=== PATIENT | male | born 1945 | race Caucasian/White ===

== ENCOUNTER 2023-08-03 12:10 | Inpatient (IN) | payer MEDICARE, OTHER, SELFPAY ==
[2023-08-03] VITALS (12 sets, daily range): BP systolic 137–172; BP diastolic 67–83; BMI 24.5; BMI 23.2; BMI 29.1
[2023-08-03 10:00] LABS: % Basophils 1.1 % (0-2); % Eosinophils 1.3 % (0-6); % Immature Granulocytes 0.6 % (0-0.5); % Lymphocytes 60.9 % (20.5-51.1); % Neutrophils 27.1 % (42.2-75.2); Absolute Basophils 0.1 10^3/uL (0-0.2); Absolute Eosinophils 0.1 10^3/uL (0-0.7); Absolute Lymphocytes 2.9 10^3/uL (1.2-3.4); Absolute Monocytes 0.4 10^3/uL (0.1-0.6); Absolute Neutrophils 1.3 10^3/uL (1.4-6.5); Hematocrit 29.8 % (39.0-52.0); Hemoglobin 10.8 g/dL (13.0-18.0); Mean Corp Hgb Conc. 36.2 g/dL (33.0-37.0); Mean Corpuscular Hgb 32.9 pg (27.0-31.0); Mean Corpuscular Volume 90.9 fL (80.0-94.0); Mean Platelet Volume 9.9 fL (7.4-10.4); Nucleated Red Blood Cells % 0 % (-); Platelet Count 179 10^3/uL (130-400); Red Blood Cell Count 3.28 10^6/uL (4.70-6.10); Red Cell Dist. Width 13.8 % (11.5-14.5); White Blood Cell Count 4.7 10^3/uL (4.8-10.8)
[2023-08-03 10:31] LABS: ALT (SGPT) 15 U/L (0-50); AST (SGOT) 21 U/L (17-59); Albumin 3.8 g/dl (3.5-5.0); Alkaline Phosphatase 103 U/L (38-126); Blood Urea Nitrogen 17 mg/dl (9-20); Calcium 8.3 mg/dl (8.4-10.2); Carbon Dioxide 21 mmol/L (22-30); Chloride 112 mmol/L (98-107); Estimated Creatinine Clearance 84 ml/min; Glucose 167 mg/dl (70-99); Potassium 2.2 mmol/L (3.5-5.1); Sodium 141 mmol/L (135-145); Total Bilirubin 0.9 mg/dl (0.2-1.3); Total Protein 5.9 g/dl (6.3-8.2); eGFR > 60.00
[2023-08-03] MEDS: KCL 270 MEQ IV (10:57)
--- NOTE | 2023-08-03 11:10 | ED.GENMED ---
History of Present Illness
General
Chief Complaint: Fainting/Passed Out
Source: patient and spouse
Time Seen by Provider: 08/03/23 09:27
Travel History
Have you had any contact with someone who has COVID-19?: No
Do you have any symptoms of coronavirus? Fever > 100 degrees, chills, cough, shortness of breath, sore throat, loss of taste or smell, muscle aches, or headache?: No
History of Present Illness
History of Present Illness:
This is 78-year-old male with a history of prostate cancer and stroke with short-term memory loss who presented or had a syncopal episode while in the shower. He woke up feeling a little tired but was in the shower and his heard him climbing.
She walked in and was able to sit him down on the chair and he probably passed out. She states that did not last long but brought in for evaluation. He is on Lytiga. Patient currently denies chest pain. He was nausea reports that is improved.
No headache. No abdominal pain. No fevers.
Past History
Past History
ED Past Medical History: Cancer (Prostate cancer), CVA, HTN and Other (Post radiation urethral stricture short-term memory loss)
ED Past Surgical History: Urological
Social History
Tobacco: Non-smoker
Alcohol: None
Personal:
Living: with family
Employment: Retired
Family History
Family History: Other (Noncontributory)
Phy Exam
Physical Exam
Physical Exam:
CONSTITUTIONAL Patient alert and oriented to person, place and time. Well-appearing. Vital signs reviewed.
HEAD atraumatic, normocephalic.
EYES eyelids normal to inspection, Pupils equally round and reactive to light, Extraocular muscles intact, Conjunctiva normal, Sclera normal.
NECK normal range of motion, Trachea midline, no jugular venous distention.
RESPIRATORY CHEST No respiratory distress noted, Chest expansion equal, Bilateral breath sounds clear.
CARDIOVASCULAR regular and bradycardic with 3 out of 6 systolic ejection murmur.
ABDOMEN abdomen nontender, Bowel sounds normal. No distention.
BACK normal inspection, no obvious deformities
UPPER EXTREMITY range of motion normal, Motor strength normal, no cyanosis, no edema.
LOWER EXTREMITY range of motion normal, Motor strength normal, no cyanosis, no edema.
NEURO Speech normal, No focal motor deficits, Cranial Nerves intact to screening exam.
SKIN skin warm, dry, and normal in color.
PSYCHIATRIC patient oriented to person place and time, Normal affect.
Course
Orders/Labs/Results
Orders:
Orders
08/03/23 09:33
EKG [Electrocardiogram (*1)] Urgent
Reason for Study: Syncope
EKG- Treatment ONCE
08/03/23 09:50
Complete Blood Count/With Diff Urgent
Comprehensive Metabolic Panel Urgent
Magnesium Urgent
08/03/23 10:05
CT Head W/o Iv Contrast Urgent
Comment:
Reason For Exam: vomiting, hx of CVA, change in ms
08/03/23 10:38
Potassium Chloride [KCl] 40 meq Dextrose 5%/Water 250 ml [D5w] 250 ml IV NOW
Abnormal Lab Results
08/03/23
09:50
WBC 4.7 L 10^3/uL
(4.8-10.8)
RBC 3.28 L 10^6/uL
(4.70-6.10)
Hgb 10.8 L g/dL
(13.0-18.0)
Hct 29.8 L %
(39.0-52.0)
MCH 32.9 H pg
(27.0-31.0)
Absolute Neuts (auto) 1.3 L 10^3/uL
(1.4-6.5)
Immature Gran % 0.6 H %
(0-0.5)
Neutrophils % 27.1 L %
(42.2-75.2)
Lymphocytes % 60.9 H %
(20.5-51.1)
Potassium 2.2 L* mmol/L
(3.5-5.1)
Chloride 112 H mmol/L
(98-107)
Carbon Dioxide 21 L mmol/L
(22-30)
Glucose 167 H mg/dl
(70-99)
Calcium 8.3 L mg/dl
(8.4-10.2)
Total Protein 5.9 L g/dl
(6.3-8.2)
08/03/23 09:50
08/03/23 09:50
Vital Signs
Initial and Last Documented VS:
Initial Vital Signs
Pulse Resp BP Pulse Ox
44 16 162/77 97
08/03/23 09:31 08/03/23 09:31 08/03/23 09:31 08/03/23 09:31
Last Documented Vital Signs
Pulse Resp BP Pulse Ox
45 14 137/67 97
08/03/23 10:00 08/03/23 10:00 08/03/23 10:00 08/03/23 09:42
MDM/Problems Addressed
MDM/Problems Addressed:
Syncope, sinus bradycardia, severe acute hypokalemia, nausea, likely a side effect from Lytiga
*Radiology
Radiology exam reviewed: preliminary read by ED provider (No obvious intracranial hemorrhage)
*Pulse Oximetry
Patient hypoxic: no
*EKG
Interpreted by ED Provider?: Yes
Interpretation: abnormal
Rate: bradycardiac
Rhythm: sinus and PVC's
Ischemia: non-specific ST changes
*Turbine Measurements Engineer Interpretation
Rate: bradycardiac
Interpretation: abnormal
Rhythm: sinus
*Critical Care Note
Total Time (30-74mins, 75-104mins- exclusive of procedures): 30 minutes
Data Reviewed
Review of Other/Old Records Reveals: Discharge Summary (Reviewed from August 2022)
Source: family
Further Testing Considered But Not Given:
Considered troponin but no signs of ischemia on EKG and no chest pain
Patient Management
Discussion with other providers: Hospitalist and Other (Case discussed with pharmacy who reviewed patient's medications and does state that Lytiga can cause hypokalemia)
Escalation/DeEscalation of care consider admission/obs:
Severe hypokalemia. Case of syncope and bradycardia, IV replacement and admit. May trial oral replacement but currently nauseous
ED Attending Note
-
Portions of this chart may have been created with voice recognition software.� Occasional wrong word or��sound alike� substitutions may have occurred due to the inherent limitations of voice recognition software.
Discharge Plan
Departure
Patient Disposition: Admit
Date of Disposition: 08/03/23
Time of Disposition: 11:10
Admit to: Telemetry
Presentation/result/management discussed w/ accepting MD/DO: Hospitalist
Discharge Problem:
Syncope, Acute hypokalemia, Bradycardia
Prescriptions:
No Action
prednisone 5 mg Tablet
5 mg PO DAILY
amlodipine 5 mg Tablet
7.5 mg PO DAILY
docusate sodium [Colace] 100 mg Capsule
200 mg PO DAILY
abiraterone [Zytiga] 250 mg Tablet
1,000 mg PO HS
ascorbic acid (vitamin C) [Vitamin C] 500 mg Tablet
500 mg PO DAILY
ibuprofen [Advil] 200 mg Tablet
200 mg PO Q6HPRN PRN (Reason: mild pain)
cholecalciferol (vitamin D3) [Vitamin D3] 25 mcg (1,000 unit) Tablet
25 mcg PO DAILY
potassium chloride 20 mEq Tablet Extended Release
20 meq PO BID
[employer] 750 mg-100 mg- 1.65 mg-108 mg Tablet
1 tab PO DAILY
Referrals:
Dany Fitzgerald, [Family Provider] -
Interventions
Interventions:
*Risk Screen - Suicide Last Done: 08/03/23 09:39
*General Assessment Last Done: 08/03/23 09:39
*Neglect/Abuse Screening Last Done: 08/03/23 09:39
*ED COVID-19 Vaccine History Last Done: 08/03/23 09:39
ED- Cardiac Assessment Last Done: 08/03/23 10:32
ED- Neurological Assessment Last Done: 08/03/23 10:32
[2023-08-03 12:00] LABS: Urine Albumin Trace (Neg - Trace); Urine Bilirubin Negative (Negative); Urine Character Clear (Clear); Urine Color Yellow; Urine Glucose 1+ (Negative); Urine Ketone 1+ (Negative); Urine Leukocyte Negative (Negative); Urine Nitrite Negative (Negative); Urine Occult Blood Trace (Negative); Urine Specific Gravity 1.015 (<1.030); Urine Urobilinogen Negative (Neg - 1+)
[2023-08-03 12:16] LABS: Urine Red Blood Cell 0-2 /HPF (0-2); Urine Squamous Cell 0-2 /LPF (Few)
[2023-08-03 12:20] LABS: Urine White Cell 0-2 /HPF (0-5)
--- NOTE | 2023-08-03 13:01 | HPS.HSE ---
Addendum entered and electronically signed by Ze Barbour MD 08/03/23 13:57:
Got call back from primary oncologist
Agreed to increase prednisone 5mg TWICE daily. Agreed to add Aldactone limit mineralocorticoid action.
Supplement K and monitor.
Original Note:
Family Physician
-
Family Physician: Dany Fitzgerald
Chief Complaint
-
syncope
History of Present Illness
Patient is a 78M with history of prostate cancer s/p prostatectomy/radiation on abiraterone, essential hypertension, history of intracranial hemorrhage in oct 03 and some residual memory loss, history of urinary retention and requirement of straight
catheterization, hyperlipidemia was brought to ER by spouse after patient had an brief syncope episode. Patient was in shower when started to having symptoms, with patient memory issues does not able to remember what transpired before syncope.
Spouse was able to sit patient down in chair after that patient passed out briefly. Patient had some nausea without vomiting after that. Patient denies of having any palpitation, chest discomfort, shortness of breath. No previous reported history
of syncope. I have contacted patient's spouse and confirmed all the details.
Patient at baseline able to ambulate without any assistance, minor memory issues are only residual problems after initial intracranial hemorrhage in October 03. Patient follows up with [facility] for treatment of prostate cancer with Dr
Omkar Mcgee
Medical History
Past Medical History
Past Medical History: Reports Other
Additional Past Medical History:
prostate cancer s/p prostatectomy/radiation on abiraterone, essential hypertension, history of intracranial hemorrhage in oct 03 and some residual memory loss, history of urinary retention and requirement of straight catheterization, hyperlipidemia
Past Surgical History: Reports Other
Social History
Tobacco: Non-smoker
Alcohol: Occasional
Drug: None
Personal:
Living: With Family
Family History
Family History: Not pertinent
Allergies / Home Medications
Allergies reflects when Allergies were last updated in [employer].
Home Medications with original date entered in [employer]
Allergy/Medication List:
Allergies
Allergy/AdvReac Type Severity Reaction Status Date / Time
Horse/Equine Containing Allergy Anaphylaxis Verified 10/02/22 01:09
Products - horse
serum
Tetanus Vaccines and Toxoid Allergy Anaphylaxis Verified 10/02/22 01:09
[Tetanus]
Home Medications
abiraterone 250 mg tablet (Zytiga) 1,000 mg PO HS Cancer 09/05/22
amlodipine 5 mg tablet 7.5 mg PO DAILY Blood pressure 09/05/22
docusate sodium 100 mg capsule (Colace) 200 mg PO DAILY Gastrointestinal issue 09/05/22
prednisone 5 mg tablet 5 mg PO DAILY Anti-inflammatory 09/05/22
ascorbic acid (vitamin C) 500 mg tablet (Vitamin C) 500 mg PO DAILY 08/03/23
cholecalciferol (vitamin D3) 25 mcg (1,000 unit) tablet (Vitamin D3) 25 mcg PO DAILY 08/03/23
glucosam 750 mg-chondroi 100 mg-hyalur 1.65 mg-CF borate 108 mg tablet ([employer]) 1 tab PO DAILY 08/03/23
ibuprofen 200 mg tablet (Advil) 200 mg PO Q6HPRN PRN mild pain 08/03/23
potassium chloride 20 mEq tablet,extended release 20 meq PO BID 08/03/23
Review of Systems
-
A 12 point ROS was completed and negative except as noted: Yes
Physical Exam
Vital Signs
Vital Signs
Pulse Resp BP Pulse Ox
48 12 150/72 98
08/03/23 12:15 08/03/23 12:15 08/03/23 12:00 08/03/23 12:15
Physical Exam
General: No Appears in Distress
HEENT: No Oxygen
Respiratory: Clear and Rhonchi; No Wheezes or Rales
Cardiac: S1/S2, Regular Rhythm and Bradycardia
GI: Soft, Non Tender and Non Distended
Musculoskeletal: No Clubbing, No Cyanosis and No Edema
Neuro: Awake, AO x 3 and Nonfocal/grossly intact
Psych: Calm
Laboratory Results
-
08/03/23 09:50
08/03/23 09:50
Laboratory Results
Total Bilirubin 0.9 mg/dl (0.2-1.3) 08/03/23 09:50
AST 21 U/L (17-59) 08/03/23 09:50
ALT 15 U/L (0-50) 08/03/23 09:50
Alkaline Phosphatase 103 U/L (38-126) 08/03/23 09:50
Data Reviewed
-
Lab Data: Labs Reviewed by me, Discussed with Patient and Discussed with Family
Impression/Plan
-
1. Syncope likely from bradycardia
Sinus bradycardia likely from sev hypokalemia
-Patient passed out briefly without any fall, spouse present during the episode
-No reported previous episodes of syncope
-EKG showing patient having sinus bradycardia with heart rate in 40s, likely explaining syncope
-Severe hypokalemia of 2.2 likely causing bradycardia
-Check TSH/free T4 and cortisol level (on prednisone)
-SBP in 150s and unlikely orthostasis, one time check ordered.
-Monitor on telemetry
-Cardio evaluation requested
2. Severe hypokalemia
-K 2.2, mag normal.
-No clear explanatory cause except abiraterone, literature reviewed - treatment is prednisone/potassium sparing diuretic/Potassium supplement
-Patient ordered IV KCl 40 mEq, repeat oral 40 M EQ x 2 ordered
-Repeat K check at 2000 ordered
-Left message for call back from primary oncologist Dr Omkar Mcgee to discuss and inform about this
3. Essential HTN
- see 2. stopping amlodipine and starting on Aldactone
4. Prostate cancer s/p prostatectomy/radiation on abiraterone
history of urinary retention and requirement of straight catheterization
History of cystoscopy and urethral dilation
-Patient denies of any need for straight catheterization now.
-Not on Flomax, continue monitoring
-Bladder scan if any concern of urinary retention.
history of intracranial hemorrhage in oct 03 and some residual memory loss
hyperlipidemia
DVT PPX - lovenox
Full code - confirmed with patient
Total time spent : 85 mins
I personally saw and examined the patient.
I have reviewed all diagnostic interpretations and treatment plans as written.
Time includes patient management by me, time spent at the patients bedside, time to review lab and imaging results, discussing patient care, documentation in the medical record, and time spent with the family or caregiver and discussing care plan
with RN/Consultants.
[2023-08-03 15:09] LABS: TSH Reflex To Free T4 3.92 uIU/ml (0.47-4.68)
[2023-08-03 15:10] LABS: Cortisol, Random 9.9 ug/dl
--- NOTE | 2023-08-03 15:14 | CM ---
Reviewed chart. Met with and Mrs. Spencer to review discharge plans. He states prior to admission he resides with his spouse in a two story home with two steps at home. He states he has an elevator to get to the second floor. He states
prior to admission he was independent with ambulation and adls. He states he does not have any DME in the home. He states he has a prescription plan and uses [facility]. He states he has been in [facility]. at [place] after his CVA. He was
also in [facility] for 4 days and he then went home with [facility] and home therapy. 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 Will need to see his current functional
level to see if he will have any skilled care needs. Medical work-up in progress. The discharge plan is to return home with his spouse when medically stable.
--- NOTE | 2023-08-03 16:07 | CON.CAR ---
Addendum entered and electronically signed by Diana Wu DO 08/03/23 20:54:
Dictation error�presenting heart rates sinus in the 40s likely secondary to electrolyte abnormalities
Addendum entered and electronically signed by Diana Wu, 08/03/23 20:25:
I saw and examined the patient.
The [employer] Supervisor's note was reviewed and I agree with the note.
Comment: Patient seen and examined. Patient is a 78-year-old male with past medical history of prostate cancer on Zytiga followed by [facility], hypertension, LVH, aortic insufficiency, CVA 09/2022 who presents to [facility]
after an episode of syncope.� Patient got up this morning and got into the shower.� Upon getting out of the shower, patient's heard him stumbling and went into the bathroom and help to get him to a chair.� She then states that he passed out for
several seconds.� 911 was called and he was brought to the emergency room.� He denied prodrome, however with his history of stroke has short-term memory loss so is forgetful.� Upon arrival he was noted to have severe hypokalemia of 2.2, and was
bradycardic in the setting of this.� Patient's states hypokalemia has been an ongoing problem for him.� He historically has been unable to take the pill form of potassium, so they had been using the powder 20meq BID until approximately 1 week
ago when they switched to the pills due to significant cost difference between powder and pill.� He tells me today that he has been chewing the pills before swallowing.� He denies nausea vomiting diarrhea as an outpatient, however did have an
episode of vomiting when he arrived to the floor today.
General:�NAD on RA
HEENT:�mmm
Respiratory:�Clear and Non Labored Respirations
Cardiac:�S1/S2, Regular Rhythm 2/6 SM
GI:�Soft, Non Tender, Non Distended and Normal Bowel Sounds
Musculoskeletal:�No edema
Plan:
Syncopal episode in the setting of marked hypokalemia to be related to zytiga therapy in addition to recent change in potassium supplementation 1 week ago
-Presenting heart rates sinus in the 40s likely secondary to alcoholic abnormalities
-Heart rates have improved currently in the 70s on telemetry
-No indication for pacemaker
-Follow on telemetry overnight
-Check echo in a.m.
-Avoid use of AV bala blocking agents
Original Note:
Consultation
Consultation Request
Date/Time Consultation Performed: 08/03/23
Requesting Provider: Dr. Barbour
Performing Provider: Agueda Mooney PA-C for Dr. Wu
Reason for Consultation: syncope
Medical History
-
Chief Complaint: syncope
History of Present Illness:
Patient is a 78-year-old male with past medical history of prostate cancer on Zytiga followed by [facility], hypertension, LVH, aortic insufficiency, CVA 09/2022 who presents to [facility] after an episode of syncope. Patient
got up this morning and got into the shower. Upon getting out of the shower, patient's heard him stumbling and went into the bathroom and help to get him to a chair. She then states that he passed out for several seconds. 911 was called and
he was brought to the emergency room. He denied prodrome, however with his history of stroke has short-term memory loss so is forgetful. Upon arrival he was noted to have severe hypokalemia of 2.2, and was bradycardic in the setting of this.
Patient's states hypokalemia has been an ongoing problem for him. He historically has been unable to take the pill form of potassium, so they had been using the powder 20meq BID until approximately 1 week ago when they switched to the pills
due to significant cost difference between powder and pill. He tells me today that he has been chewing the pills before swallowing. He denies nausea vomiting diarrhea as an outpatient, however did have an episode of vomiting when he arrived to the
floor today.
PMH:
Prostate cancer on zytiga, followed by [facility]
HTN
LVH
AI
History of CVA 09/2022 with residual short term memory issues
Past Medical History
Past Medical History: Other (in HPI)
Social History
Tobacco: Non-Smoker
Personal:
Living: With Family
Family History
Family History: Reviewed & Not Pertinent
Allergies / Home Medications
Allergy/AdvReac Type Severity Reaction Status Date / Time
Horse/Equine Containing Allergy Anaphylaxis Verified 10/02/22 01:09
Products - horse
serum
Tetanus Vaccines and Toxoid Allergy Anaphylaxis Verified 10/02/22 01:09
[Tetanus]
Medication Instructions Recorded Confirmed Type
abiraterone 250 mg tablet (Zytiga) 1,000 mg PO HS Cancer 09/05/22 08/03/23 History
amlodipine 5 mg tablet 7.5 mg PO DAILY Blood pressure 09/05/22 08/03/23 History
docusate sodium 100 mg capsule 200 mg PO DAILY Gastrointestinal 09/05/22 08/03/23 History
(Colace) issue
prednisone 5 mg tablet 5 mg PO DAILY Anti-inflammatory 09/05/22 08/03/23 History
ascorbic acid (vitamin C) 500 mg 500 mg PO DAILY 08/03/23 08/03/23 History
tablet (Vitamin C)
cholecalciferol (vitamin D3) 25 25 mcg PO DAILY 08/03/23 08/03/23 History
mcg (1,000 unit) tablet (Vitamin
D3)
glucosam 750 mg-chondroi 100 1 tab PO DAILY 08/03/23 08/03/23 History
mg-hyalur 1.65 mg-CF borate 108 mg
tablet ([employer])
ibuprofen 200 mg tablet (Advil) 200 mg PO Q6HPRN PRN mild pain 08/03/23 08/03/23 History
potassium chloride 20 mEq 20 meq PO BID 08/03/23 08/03/23 History
tablet,extended release
Review of Systems
-
History Source: Patient and Family
All other systems: Negative unless noted
Physical Exam
Vital Signs
Temp Pulse Resp BP Pulse Ox
97.4 F 75 16 156/79 98
08/03/23 14:18 08/03/23 14:18 08/03/23 14:18 08/03/23 14:18 08/03/23 14:18
Lab Results
08/03/23 09:50
Physical Exam
General: No Apparent Distress and Comfortable
HEENT: Normocephalic, Anicteric and Moist Mucous Membranes
Respiratory: Clear and Non Labored Respirations
Cardiac: S1/S2, Regular Rhythm and Murmur
GI: Soft, Non Tender, Non Distended and Normal Bowel Sounds
Musculoskeletal: No Clubbing, No Cyanosis and No Edema
Skin: Warm and Dry
Neuro: AO x 3 (forgetful at times)
Impression / Plan
-
Primary Cardiac Monitor: last seen by Dr. Lloyd in 2021
Assessment:
Syncope
Severe hypokalemia
Sinus bradycardia in setting of above
Persistent symptomatic atrial fibrillation status post PVI 07/15/2023
Chronic anticoagulation with Eliquis
Hypertension
Depression
Anxiety
Insomnia
BPH with urinary retention
ECHO 11/2020: EF 60 to 65%, moderate LVH, mild mitral regurgitation, aortic sclerosis, mild to moderate AR, normal right heart with top normal pulmonary artery pressure
Plan:
-Patient presents with episode of syncope. Noted to be markedly hypokalemic upon arrival, likely related to zytiga therapy with recent change in potassium administration as of 1 week ago
-Bradycardia improved with initiation of potassium repletion, continue. Follow on telemetry overnight
-Check echo in a.m.
-BP elevated. on norvasc as OP. spironolactone added by primary service for BP control and with hypokalemia
-will need repeat BMP as OP for reassessment
-head CT with 'probable microvascular change of R frontal lobe'
-d/w nursing. d/w patient and at bedside
Data Reviewed
-
EKG: Tracing Personally Visualized and interpreted
CT Scan: Report Reviewed by me
Medical Tests (Nuc Med, Echo etc): Report Reviewed by me
Labs: Labs Reviewed by me
Old Records: Reviewed
[2023-08-03] MEDS: ALDACTONE 25 MG PO (16:09)
[2023-08-03] MEDS: KCL ELIXIR 40 MEQ PO (17:33)
[2023-08-03] MEDS: LOVENOX 40 MG SC (17:33)
--- NOTE | 2023-08-03 18:40 | PTCARENOTE ---
pt came up from ED. Pt vomited yellow bile. Pt states 'I feel better now.' Pt is SR on the monitor, HR 70s, VSS. Pt educated on plan of care for the evening and pt verbalized understanding. Pt AAO but forgetful at times. Bed Alarm in place. call
lyman within reach.
[2023-08-03] MEDS: DELTASONE 5 MG PO (20:01)
[2023-08-03] MEDS: KCL 20 MEQ PO ×2 (20:02→22:09)
[2023-08-03] MEDS: KCL ELIXIR PO (20:05)
[2023-08-03 21:27] LABS: Potassium 3.3 mmol/L (3.5-5.1)
[2023-08-03] MEDS: NON-FORMULARY ITEM 4 MG PO (22:09)
--- NOTE | 2023-08-04 | PTCARENOTE ---
Received patient at change of shift this PM. AAOx3. Patient is forgetful at times with short-term memory loss secondary to CVA. VSS. He is NSR on the monitor. HR in the 70s. INT patent. He denies chest pain or discomfort. He is a fall risk and
understands that he is to ring his call lyman for assistance with ambulation. Plan of care discussed. He is receptive to teaching and motivated, but forgetful at times and needs reinforcement. We discussed his medications. I explained the purpose and
importance of his potassium several times. He denies pain and appears comfortable in bed at this time. Will continue to monitor.
[2023-08-04 02:33] VITALS: BP 120/79
[2023-08-04 03:08] LABS: Hematocrit 29.1 % (39.0-52.0); Hemoglobin 10.4 g/dL (13.0-18.0); Mean Corp Hgb Conc. 35.7 g/dL (33.0-37.0); Mean Corpuscular Hgb 31.7 pg (27.0-31.0); Mean Corpuscular Volume 88.7 fL (80.0-94.0); Mean Platelet Volume 10.2 fL (7.4-10.4); Platelet Count 188 10^3/uL (130-400); Red Blood Cell Count 3.28 10^6/uL (4.70-6.10); Red Cell Dist. Width 13.8 % (11.5-14.5); White Blood Cell Count 5.9 10^3/uL (4.8-10.8)
[2023-08-04 03:51] LABS: Blood Urea Nitrogen 12 mg/dl (9-20); Calcium 8.2 mg/dl (8.4-10.2); Carbon Dioxide 24 mmol/L (22-30); Chloride 110 mmol/L (98-107); Estimated Creatinine Clearance 115 ml/min; Glucose 105 mg/dl (70-99); Potassium 3.5 mmol/L (3.5-5.1); Sodium 140 mmol/L (135-145); eGFR > 60.00
[2023-08-04 06:53] VITALS: BP 132/102
[2023-08-04] MEDS: KCL 20 MEQ PO (08:36)
[2023-08-04] MEDS: DELTASONE 5 MG PO (08:36)
[2023-08-04] MEDS: ALDACTONE 25 MG PO (08:36)
--- NOTE | 2023-08-04 10:14 | W.PN.CARDCBS ---
Addendum entered and electronically signed by Wang Dubose DO 08/04/23 12:04:
I saw and examined the patient.
The Product Development Chemist's note was reviewed and I agree with the note.
Comment:
Plan:
HR improved
Echo reviewed and EF preserved and stable.
Meds adjusted as per primary service for hypokalemia
Outpt follow up to be arranged
Discussed with family at bedside and primary service
Please recall if needed.
Original Note:
Today's Communication / Plan
-
Bradycardia resolved
Echocardiogram appears stable
Continue supplemental potassium
Norvasc transition to spironolactone
Outpatient BMP in 1 to 2 weeks
Will plan to sign off
Impression / Plan
-
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 Lloyd in 2021
Assessment:
Syncope
Severe hypokalemia
Sinus bradycardia in setting of above
Persistent symptomatic atrial fibrillation status post PVI 07/15/2023
Chronic anticoagulation with Eliquis
Hypertension
Depression
Anxiety
Insomnia
BPH with urinary retention
ECHO 11/2020: EF 60 to 65%, moderate LVH, mild mitral regurgitation, aortic sclerosis, mild to moderate AR, normal right heart with top normal pulmonary artery pressure
ECHO 08/04/23: EF 55 to 60%, mild concentric LVH, mild MR, mild with peak/mean gradients 40/18 mmHg, mild to moderate AR, mild TR, PAP 20 to 25 mmHg
Plan:
-Patient feeling well this morning. Appears brighter
-Has been ambulatory in room without dizziness/lightheadedness
-On review of telemetry, no bradycardia overnight. Resolved with potassium repletion
-Echocardiogram with preserved EF mild , mild to moderate AR
-Potassium has been repleted. Patient and plan to resume use of powder rather than pills upon discharge
-Outpatient Norvasc has been transition to Aldactone to assist with potassium
-Should have repeat BMP in 1 to 2 weeks as outpatient
-d/w patient and at bedside
-will sign off. please call with questions
Progress Note - Custom Tailor Apprentice
Subjective
Date of Service: August 04, 2023
Feels improved this morning. Denies dizziness/lightheadedness
Objective
Labs:
08/04/23 02:43
08/04/23 02:43
Labs
Hgb 10.4 g/dL (13.0-18.0) L 08/04/23 02:43
Hct 29.1 % (39.0-52.0) L 08/04/23 02:43
Plt Count 188 10^3/uL (130-400) 08/04/23 02:43
Sodium 140 mmol/L (135-145) 08/04/23 02:43
Potassium 3.5 mmol/L (3.5-5.1) 08/04/23 02:43
BUN 12 mg/dl (9-20) 08/04/23 02:43
Creatinine 0.6 mg/dL (0.7-1.3) L 08/04/23 02:43
Glucose 105 mg/dl (70-99) H 08/04/23 02:43
Vital Signs and I&O:
Vital Signs
Temp Pulse Resp BP Pulse Ox
98.4 F 76 16 120/79 97
08/04/23 07:00 08/04/23 02:33 08/04/23 07:00 08/04/23 02:33 08/04/23 07:00
Vital Signs
Temp Pulse Resp BP Pulse Ox
98.4 F 76 16 120/79 97
08/04/23 07:00 08/04/23 02:33 08/04/23 07:00 08/04/23 02:33 08/04/23 07:00
Intake & Output
08/02/23 08/03/23 08/04/23 08/05/23
07:59 07:59 07:59 07:59
Intake Total 240 / 240
Output Total 150 / 150
Balance 90 / 90
Physical Exam
Physical Exam
GEN: No distress, awake, alert, oriented x3
HEENT: supple, anicteric, mmm, eomi
LUNGS: CTA B/L, no wheezes/rales
CV: Reg, S1/S2, 2/6 murmur
ABD: soft, BS+, NT/ND
EXT: No cyanosis, clubbing, edema
NEURO: Gross non-focal
SKIN: Warm, pink, dry. No rash
[2023-08-04 10:29] VITALS: BMI 22.7
--- NOTE | 2023-08-04 11:11 | CM ---
Reviewed chart. Met with Mr. emily Spencer to review discharge plans. Reviewed [facility] Services with them. They are currently declining VNA services. They do not feel he needs this services. Medical work-up in progress. The discharge plan is to
return home with his spouse when medically stable.
[2023-08-04 11:22] VITALS: BP 118/84
[2023-08-04 11:33] VITALS: BP 121/79
[2023-08-04 11:36] VITALS: BP 118/84; BP 121/79; PULSE 83; O2SAT 94
--- NOTE | 2023-08-04 11:48 | PTOTSP ---
Patient demonstrates safe mobility, no skilled physical therapy needs, recommend resume his strengthening with head athletic trainer/strength coach at the gym upon d/c.
--- NOTE | 2023-08-04 15:01 | W.PN.HOSP.TC ---
Today's Communication/Plan
-
d/c home
Assessment / Plan
Assessment / Plan
TTE
Normal left ventricular size and systolic function. No regional wall motion abnormalities are seen. LV ejection fraction is 55-60% by Ponce's method of discs. Mild concentric left ventricular hypertrophy.
Mild mitral regurgitation.�Mild aortic stenosis. Peak/mean gradients are 40/18mmHg. aortic valve area 1.5cm sq. Mild to moderate aortic regurgitation.
Mild tricuspid regurgitation. Estimated pulmonary artery pressure of 20-25 mmHg. Compared to echo from November 2020, there is now mild .

1. Syncope from sinus bradycardia
� � Sinus bradycardia from sev hypokalemia
-Patient passed out briefly without any fall, spouse present during the episode
-No reported previous episodes of syncope
-EKG showing patient having sinus bradycardia with heart rate in 40s, likely explaining syncope
-Severe hypokalemia of 2.2 likely causing bradycardia
-TSH/FT4 and random cortisol WNL (on prednisone)
-Cardio help appreciated, TTE as above
-Monitor on telemetry overnight
-Cardio evaluation requested
�
2. Severe hypokalemia from abiraterone use
-K 2.2, mag normal.
-No clear explanatory cause except abiraterone, literature reviewed - treatment is prednisone/potassium sparing diuretic/Potassium supplement
-Patient ordered IV KCl 40 mEq, repeat oral 40 M EQ x 2 ordered
-Discussed case with primary oncologist Dr Omkar Mcgee -agreed to increase prednisone 5 g twice daily, Aldactone added for aldosterone antagonism, conitnue K supplement
-Morning potassium was 3.5, follow-up BMP in 1 week - if not improved will need to be on increased dose of Kcl pill.
3. Essential HTN
- see 2. stopping amlodipine and starting on Aldactone
4. Prostate cancer s/p prostatectomy/radiation on abiraterone
� � history of urinary retention and requirement of straight catheterization
� � History of cystoscopy and urethral dilation
-Patient denies of any need for straight catheterization now.
-Not on Flomax, continue monitoring
-Bladder scan if any concern of urinary retention.
history of intracranial hemorrhage in oct 03 and some residual memory loss
hyperlipidemia
Full code
More than 30 minutes spent in discharge including
Final examination of the patient
Summarizing hospital stay
Instructions for continuing care to all relevant caregivers
Preparation of discharge records, prescriptions, and referral forms
Total time spent (in minutes): 40 mins
Anticipated Discharge: Today
Subjective/Interval History
-
Date of Service: August 04, 2023
Heart rate normalized
No further episode of syncope overnight
Objective Data
-
Labs:
Laboratory Results
08/04/23
02:43
WBC 5.9
Hgb 10.4 L
Hct 29.1 L
Plt Count 188
Sodium 140
Potassium 3.5
Chloride 110 H
Carbon Dioxide 24
BUN 12
Creatinine 0.6 L
Glucose 105 H
Calcium 8.2 L
Vital Signs:
Vital Signs
Temp Pulse Resp BP Pulse Ox
98.4 F 68 16 121/79 97
08/04/23 07:00 08/04/23 12:00 08/04/23 07:00 08/04/23 11:33 08/04/23 07:00
I&O
08/03/23 08/04/23 08/05/23
06:59 06:59 06:59
Intake Total 240 / 240
Output Total 150 / 150
Balance 90 / 90
Review of Systems
-
Respiratory: Reports No Symptoms
Cardiac: Reports No Symptoms
Abdomen/GI: Reports No Symptoms
Physical Exam
-
General: Negative Respiratory Distress or Appears in Distress
HEENT: Negative Oxygen
GI: Soft, Nontender and Nondistended
Neuro: Awake, Alert and Oriented
--- NOTE | 2023-08-04 17:14 | W.DCSUMMARY ---
Discharge Summary
Discharge Data
Date of Admission: 08/03/23
Date of Discharge: 08/04/23
-
Pending Results: No
Hospital Course
Discharging Physician : Dr Ze Barbour
Disposition : Home
Primary care physician : Dr Evelio Fitzgerald
Principal Discharge diagnosis :
Syncope secondary to sinus bradycardia
Bradycardia secondary to severe hypokalemia
Recurrent hypokalemia secondary to abiraterone therapy
Chronic Discharge diagnosis :
Essential hypertension
Prostate cancer s/p prostatectomy/radiation therapy
History of urinary retention requiring straight catheterization in the past
History of cystoscopic urethral dilation
Hospital Course :
Patient is a 78-year-old male with mentioned past medical history came to ER after having a brief syncopal episode at home. Apparently patient was in bathroom and started feeling dizzy, when spouse checked and was able to redirect patient to chair.
Patient lost consciousness for few seconds at the point. No fall/trauma. Patient was brought into ER for further evaluation and was noted to be bradycardic with heart rate in 40s. EKG showing sinus bradycardia. Routine lab work showing patient
severely hypokalemic with potassium of 2.2. Magnesium level within normal limit. Patient was felt to having syncope from sinus bradycardia resulted by severe hypokalemia. Patient have history of prostate cancer and has been on abiraterone therapy
by oncology service @ [facility], known to have episode of hypokalemia in the past although not this severe. Patient was given IV and oral potassium and patient heart rate normalized after this. Patient already on prednisone therapy and dose was
increased to 5 mg twice daily after discussion with primary oncologist. Patient was also started on Aldactone therapy to counteract aldosterone activity. Cardiology was involved in care and echocardiogram was done which was normal. No further
episode of syncope. After normalization of potassium patient was discharged home with follow-up BMP in 1 week. If patient continues to have hypokalemia will likely require to have on higher doses of potassium supplement.
Important imaging findings :
None
Procedure findings :
None
Discharge Plan
-
Patient Disposition: Home (Routine Discharge)
Discharge Diagnosis/Procedures: Syncope from sinus bradycardia from severe hypokalemia 2/2 to abiraterone use
Condition: Fair
Diet: Regular
Activity: As tolerated
Driving Restrictions: As prior to admission
Bathing Restrictions: OK to Shower
Blood Work: BMP in 1 week
Stop these medications:: Amlodipine - Changed to aldactone
Referrals:
Dany Fitzgerald DO [Family Provider] - in one week
Prescriptions:
New
prednisone 5 mg Tablet
5 mg PO BID Qty: 60 1RF
spironolactone 25 mg Tablet
25 mg PO DAILY Qty: 30 1RF
Continued
docusate sodium [Colace] 100 mg Capsule
200 mg PO DAILY
abiraterone [Zytiga] 250 mg Tablet
1,000 mg PO HS
ascorbic acid (vitamin C) [Vitamin C] 500 mg Tablet
500 mg PO DAILY
ibuprofen [Advil] 200 mg Tablet
200 mg PO Q6HPRN PRN (Reason: mild pain)
cholecalciferol (vitamin D3) [Vitamin D3] 25 mcg (1,000 unit) Tablet
25 mcg PO DAILY
potassium chloride 20 mEq Tablet Extended Release
20 meq PO BID
[facility] [employer] [facility] 750 mg-100 mg- 1.65 mg-108 mg Tablet
1 tab PO DAILY
Discontinued
prednisone 5 mg Tablet
5 mg PO DAILY
amlodipine 5 mg Tablet
7.5 mg PO DAILY
Discharge Orders:
Discharge Patient (As Directed); Ordered 08/04/23
Ordered By: Ze Barbour
Care Plan Goals
Care Plan Goals:
Problem: Readiness for enhanced knowledge related to diagnosis and treatment plan
Goal: Understand your diagnosis and treatment plan needs, including medications if applicable.
Instructions: Know your diagnosis, underlying causes and treatment plan options, including medications if applicable. Consult with your health care team to learn about your diagnosis and treatment plan, including medications if applicable.
Discharge Date and Time
Discharge Date/Time: 08/04/23 13:07
== END 2023-08-04 13:07 | disposition home or self-care (01) | DRG 641 ==
LOC: IVU 12:10
PROVIDERS: ADMITTING PHYSICIAN Hospitalist; CONSULT PHYSICIAN Internal Medicine Cardiovascular Disease; EMERGENCY PHYSICIAN Emergency Medicine; FAMILY PHYSICIAN Family Medicine
DX: E87.6 Hypokalemia (principal); I10 Essential (primary) hypertension; F32.A Depression, unspecified; F41.9 Anxiety disorder, unspecified; Z79.01 Long term (current) use of anticoagulants
CPT/HCPCS: 70450; 80048; 80053; 81003; 81015; 82533; 83735; 84132; 84443; 85025; 85027; 93005; 93306; 96374; 97116; 97162; 99291

== ENCOUNTER → 2023-08-09 14:29 | Outpatient (REF) | payer MEDICARE, OTHER, SELFPAY ==
[2023-08-09 15:02] LABS: Blood Urea Nitrogen 19 mg/dl (9-20); Calcium 10.1 mg/dl (8.4-10.2); Carbon Dioxide 30 mmol/L (22-30); Chloride 105 mmol/L (98-107); Glucose 105 mg/dl (70-99); Potassium 4.4 mmol/L (3.5-5.1); Sodium 139 mmol/L (135-145); eGFR > 60.00
== END ==
LOC: REG 14:29
PROVIDERS: ATTENDING PHYSICIAN Hospitalist; FAMILY PHYSICIAN Family Medicine
DX: E87.6 Hypokalemia (principal)
CPT/HCPCS: 36415; 80048

== ENCOUNTER 2024-03-20 14:43 | Observation (INO) | payer MEDICARE, OTHER, SELFPAY ==
[2024-03-20] VITALS (12 sets, daily range): BP systolic 107–140; BP diastolic 69–86; BMI 25.1; BMI 24.9
--- NOTE | 2024-03-20 08:20 | ED.GENMED ---
History of Present Illness
General
Chief Complaint: Headache
Source: patient and ambulance crew
Exam Limitations: none
Time Seen by Provider: 03/20/24 08:07
Nursing documentation reviewed up to this point in time: agreed with
History of Present Illness
History of Present Illness:
79-year-old male with a past medical history of CVA, hypertension, prostate cancer who presents to the ER for evaluation of headache and dizziness. Patient reports onset of symptoms yesterday evening after dinner and have been constant since that
time. He reports a constant mild dull aching pain in the occipital region. Does not radiate. No clear triggering or relieving factors noted. Denies any associated trauma. He says that in addition to headache he has had dizzy feeling�he
describes feeling 'wobbly' when he stands up and walks around but denies any room spinning sensation, denies feeling lightheaded or passing out. He denies any focal weakness or numbness in his extremities. He denies any change in his vision or
speech. He denies any other complaints including chest pain, palpitations, abdominal pain, recent fever or illness. He says that because symptoms were not improving this morning he decided to come to the emergency room to be evaluated.
Past History
Past History
ED Past Medical History: Cancer (Prostate cancer), CVA, HTN and Other (Post radiation urethral stricture short-term memory loss)
ED Past Surgical History: Urological
Social History
Tobacco: Non-smoker
Alcohol: None
Personal:
Living: with family
Employment: Retired
Family History
Family History: Other (Noncontributory)
Review of Systems
Review of Systems
All Other Systems: ROS reviewed and negative except as documented in HPI and ROS
Constitutional: Denies fever or chills
Respiratory: Denies cough or trouble breathing
Cardiac: Denies chest pain, palpitations or syncope
ABD/GI: Denies abdominal pain, nausea, vomiting or diarrhea
: Denies flank pain
Musculoskeletal: Denies neck pain or back pain
Neurological: Reports dizzy and headache; Denies weakness or numbness
Phy Exam
Physical Exam
Physical Exam:
General: Awake, alert, oriented x3; no acute distress
Head: Normocephalic, atraumatic
Eyes: Conjunctiva normal, EOMI, pupils equal round and reactive to light bilaterally, visual webb are intact
Throat: Airway intact, handling secretions
Neck: Trachea midline, supple without meningismus
Lungs: Clear to auscultation bilaterally, no wheezing, rales, rhonchi
Heart: Regular rate and rhythm, faint systolic murmur
Abd: Soft, non distended, nontender
Neuro: Cranial nerves intact 2 through 12, speech fluid no dysarthria or aphasia, no limb ataxia, motor and sensory function intact proximally and distally in the upper and lower extremities
Extremities: No edema in extremities, equal pulses in all extremities
Scores
Heart Failure Risk
Heart Failure Risk Score: Not Applicable
Heart Score for Chest Pain Patients
STEMI patient?: Not applicable
Withdrawal Assessment of Alcohol
Withdrawal Assessment Completed?: Not applicable
Course
Orders/Labs/Results
Orders:
Orders
03/20/24 08:19
Electrocardiogram (*1) Urgent
Reason for Study: Vertigo / Dizzy
CT Head W/o Iv Contrast Urgent
Comment:
Reason For Exam: occipital headache, dizzy
EKG- Treatment ONCE
03/20/24 08:20
0.9% Sodium Chloride 1000 ml [Nss] 1,000 ml IV BOLUS
Acetaminophen [Tylenol] 1,000 mg PO NOW STA
03/20/24 09:00
COVID-19 Antigen Urgent
Source: Nasal Swab
Complete Blood Count/With Diff Urgent
Comprehensive Metabolic Panel Urgent
TSH Reflex To Free T4 Urgent
03/20/24 10:00
Diphenhydramine [Benadryl] 25 mg IV NOW STA
Ketorolac [Toradol] 15 mg IV NOW STA
Metoclopramide [Reglan] 10 mg IV NOW STA
03/20/24 10:03
NEUROLOGY CONSULT Urgent
Consulting Provider: Roberta Mcnamara
Was physician already notified: Yes
03/20/24 13:42
Aspirin 325 mg PO NOW STA
03/20/24 14:04
Admit/Transfer Patient As Directed
Co-Sign Provider:
Level of Care: Observation services
Assign to:: Telemetry
Physician / Group: dru
Diagnosis: CVA
Reason for Telemetry: CVA/TIA
Date to Stop Telemetry: 03/23/24
Time to Stop Telemetry: 11:00
PRN Pain Medication Management As Directed
May give lesser potent ordered pain med per pt: Yes
preference::
Protocol:: Medication orders for pain may be administered in a
manner that supports deferring to patient preference
when the pt is:
- Requesting an ordered lesser potent pain medication.
Least to most potent pain medications are defined
as: acetaminophen < NSAID < tramadol < opioids
(morphine, oxycodone, hydromorphone).
- Requesting a lesser dose of the same medication IF
ORDERED.
- Requesting a less intrusive route of administration
if both routes are prescribed by the provider (PO <
IV).
03/20/24 14:05
Code Status As Directed
Resuscitation Status: Full Code
03/20/24 14:33
CT Head & Neck Angio W/wo IV Routine
Comment:
Reason For Exam: stenosis
MR Brain Without Contrast Routine
Comment:
Reason For Exam: ataxia
OK for patient to be off Cardiac Monitoring for MRI: No
Recent pill cam endoscopy?: No
03/23/24 11:00
DC Protocol for Telemetry ONCE
Abnormal Lab Results
03/20/24
09:00
RBC 3.19 L 10^6/uL
(4.70-6.10)
Hgb 10.6 L g/dL
(13.0-18.0)
Hct 30.8 L %
(39.0-52.0)
MCV 96.6 H fL
(80.0-94.0)
MCH 33.2 H pg
(27.0-31.0)
Absolute Lymphs (auto) 4.2 H 10^3/uL
(1.2-3.4)
Neutrophils % 21.8 L %
(42.2-75.2)
Lymphocytes % 67.1 H %
(20.5-51.1)
BUN 21 H mg/dl
(9-20)
Glucose 103 H mg/dl
(70-99)
Total Protein 6.1 L g/dl
(6.3-8.2)
03/20/24 09:00
03/20/24 09:00
Vital Signs
Initial and Last Documented VS:
Initial Vital Signs
Temp Pulse Resp BP Pulse Ox
36.6 C 72 15 124/86 98
03/20/24 08:16 03/20/24 08:16 03/20/24 08:16 03/20/24 08:16 03/20/24 08:16
Last Documented Vital Signs
Temp Pulse Resp BP Pulse Ox
36.6 C 70 14 135/76 95
03/20/24 08:16 03/20/24 15:00 03/20/24 15:00 03/20/24 15:00 03/20/24 15:00
MDM/Problems Addressed
Differential Diagnosis Includes:
CVA, tension headache, migraine headache, dehydration, electrolyte derangement, anemia, brain bleed, brain mass
MDM/Problems Addressed:
79-year-old male presents to the emergency room for evaluation of headache and dizziness/disequilibrium that started yesterday evening after dinner and have been constant since that time. Denies any associated falls or head trauma. Vitals and exam
as documented above. Will place an IV check labs including a CBC and a CMP. Check an EKG. Check CT head. Swab for COVID. Provide some fluids and Tylenol. Monitor closely reassess after the above.
Labs reviewed: CBC shows stable anemia, CMP no clinically significant abnormalities. COVID was negative. CT head negative for any acute pathology. EKG shows sinus rhythm. Clinical reassessment after Tylenol and fluids patient has had no change
in his symptoms. Still feels dizzy and still complains of occipital headache. Will treat with Toradol, Reglan, Benadryl and assess improvement. Case discussed with neurology for consultation.
Neurology evaluated patient at bedside, recommend admission to have further evaluation to rule out CVA. Case discussed with hospitalist for admission.
Chronic conditions affecting care:
History of stroke, hypertension
*Radiology
Radiology exam reviewed: radiology read reviewed
*Pulse Oximetry
Patient hypoxic: no
*Critical Care Note
Total Time (30-74mins, 75-104mins- exclusive of procedures): Not Applicable
Data Reviewed
Review of Other/Old Records Reveals: Records and Discharge Summary
Source: patient, records, spouse and ambulance crew
Patient Management
Discussion with other providers: Hospitalist (Discussed with hospitalist) and Architectural Inspector (Discussed with neurology)
Escalation/DeEscalation of care consider admission/obs:
Admission indicated
ED Attending Note
-
Portions of this chart may have been created with voice recognition software.� Occasional wrong word or��sound alike� substitutions may have occurred due to the inherent limitations of voice recognition software.
Discharge Plan
Departure
Patient Disposition: Admit
Date of Disposition: 03/20/24
Time of Disposition: 13:42
Admit to doctor: Dru
Presentation/result/management discussed w/ accepting MD/DO: Hospitalist
Discharge Problem:
Dizziness, Headache
Interventions
Interventions:
*Risk Screen - Suicide Last Done: 03/20/24 08:31
*General Assessment Last Done: 03/20/24 08:21
*Neglect/Abuse Screening Last Done: 03/20/24 08:39
*ED COVID-19 Vaccine History Last Done: 03/20/24 08:21
ED- Neurological Assessment Last Done: 03/20/24 09:54
[2024-03-20] MEDS: NSS 1000 IV (08:56)
[2024-03-20] MEDS: TYLENOL 1000 MG PO (08:56)
[2024-03-20 09:12] LABS: Hematocrit 30.8 % (39.0-52.0); Hemoglobin 10.6 g/dL (13.0-18.0); Mean Corp Hgb Conc. 34.4 g/dL (33.0-37.0); Mean Corpuscular Hgb 33.2 pg (27.0-31.0); Mean Corpuscular Volume 96.6 fL (80.0-94.0); Mean Platelet Volume 9.8 fL (7.4-10.4); Platelet Count 224 10^3/uL (130-400); Red Blood Cell Count 3.19 10^6/uL (4.70-6.10); Red Cell Dist. Width 14.4 % (11.5-14.5); White Blood Cell Count 6.2 10^3/uL (4.8-10.8)
[2024-03-20 09:25] LABS: COVID-19 Antigen Negative (Negative)
[2024-03-20 09:26] LABS: % Eosinophils 0.8 % (0-6); % Immature Granulocytes 0.3 % (0-0.5); % Lymphocytes 67.1 % (20.5-51.1); % Neutrophils 21.8 % (42.2-75.2); Absolute Basophils 0.1 10^3/uL (0-0.2); Absolute Eosinophils 0.1 10^3/uL (0-0.7); Absolute Lymphocytes 4.2 10^3/uL (1.2-3.4); Absolute Monocytes 0.6 10^3/uL (0.1-0.6); Absolute Neutrophils 1.4 10^3/uL (1.4-6.5); Nucleated Red Blood Cells % 0 % (-)
[2024-03-20 09:30] LABS: ALT (SGPT) 21 U/L (0-50); AST (SGOT) 25 U/L (17-59); Alkaline Phosphatase 96 U/L (38-126); Blood Urea Nitrogen 21 mg/dl (9-20); Chloride 107 mmol/L (98-107); Estimated Creatinine Clearance 82 ml/min; Glucose 103 mg/dl (70-99); Potassium 4.4 mmol/L (3.5-5.1); Sodium 141 mmol/L (135-145); Total Bilirubin 0.2 mg/dl (0.2-1.3); Total Protein 6.1 g/dl (6.3-8.2); eGFR > 60.00
[2024-03-20 09:41] LABS: Albumin 3.9 g/dl (3.5-5.0); Carbon Dioxide 25 mmol/L (22-30)
[2024-03-20 10:26] LABS: TSH Reflex To Free T4 2.29 uIU/ml (0.47-4.68)
[2024-03-20] MEDS: TORADOL 15 MG IV (10:34)
[2024-03-20] MEDS: REGLAN 10 MG IV (10:36)
[2024-03-20] MEDS: BENADRYL 25 MG IV (10:37)
--- NOTE | 2024-03-20 10:38 | CON.NEURO ---
Consultation
Order
Date of Consultation: 03/20/24
Requesting Provider: Christiano Gaitan M.D.
Reason for Consult: imbalance
CC: none
HPI: This is a 79-year-old LH man who presented to [facility] on March 20, 2024 with a new onset headache and ataxia. The headache is bioocipital, began gradually during the day yesterday and worsened at night. According to
patient's spouse Mr. Spencer was unable to stand or walk requiring assistance during is usual overnight trips to bathroom making the family to seek medical attention. Toño usually walks without a cane indoors but uses it outside for longer walks.
The patient has a history of L basal ganglia ICH with RENE that he was hospitalized for to [facility] in 09/2022. He has baseline right hemiparesis and cognitive deficits.
Mr. Spencer has been experiencing hand tremors on and off for a couple of months, which worsen when holding objects such as a cup of coffee. He denies any recent changes in medications, except for receiving COVID and flu vaccinations.
According to Cardiology note from 08/04/23 Mr. Spencer has a history of persistent symptomatic atrial fibrillation status post PVI 07/15/2023 on chronic anticoagulation with Eliquis
ER VS: 124/86, 72, afebrile.
EKG: NSR, QTc Int : 446 ms.
PDMP: none
Labs: Glucose�103, normal WBCs, TSH, hemoglobin�10.6, MVA 96.6, sodium, negative SARS-CoV-2 antigen,
CT head-chronic R MANDI territory infarct
PMH: R MANDI stoke, A-Fib, vascular dementia, stage IV prostate cancer(s/p radiation on NUBEQA), HTN, DLP, anemia, CHF, TERESITA, MDD, insomnia, BPH, vit D deficiency, osteopenia
PSH: prostatectomy, pulmonary vein isolation ablation(07/15/2023), vasectomy
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
FH:family history of colon cancer
All: Tetanus antitoxin
ROS: Constitutional: Negative. Negative for chills, fever and unexpected weight change.
HENT: Negative for ear pain, hearing loss, tinnitus and trouble swallowing.
Eyes: Negative. Negative for photophobia, pain and visual disturbance.
Respiratory: Negative for cough, choking and shortness of breath.
Cardiovascular: Negative for chest pain, palpitations and leg swelling.
Gastrointestinal: Negative for abdominal pain and vomiting.
Endocrine: Negative. Negative for cold intolerance.
Genitourinary: positive for UI
Musculoskeletal: Negative for back pain, gait problem, neck pain and neck stiffness.
Skin: Negative for rash.
Allergic/Immunologic: Negative. Negative for immunocompromised state.
Neurological: positive for R HP, ataxia, headache
Psychiatric/Behavioral: positive for confusion
General: Well developed. In no acute distress.
Cardio: Regular rate and rhythm without murmur. Extremities are without cyanosis or edema.
Neuro:
Mental Status: Alert, oriented to self, person, year, month. Date was close. Unable to follow complex requests across midline. Nonfluent. Impaired attention and comprehension. No hemineglect.
Cranial Nerves: Pupils are equally round and reactive to light. EOMs full. Visual webb full to confrontation. No ptosis. No nystagmus. V1-V3 intact to light touch and pinprick bilaterally, symmetric. Face symmetric. Impaired hearing AU.
The palate elevated well. SCMs and traps 5/5. Tongue midline. No dysarthria.
Motor: Normal bulk and tone with augmentation. No pronator or arm drift. Strength 5/5 throughout. No clonus.
Reflexes: 1+ throughout the upper extremities and 0 knees. Plantar responses flexor bilaterally.
Sensory: preserved vibration at the ankles
Coordination: BL action hand tremor, no ataxia
Gait: deferred
Assessment and Plan:
I. Ataxia
II. New onset of headache
III. History of L BG ICH(09/2021)
IV. Chronic R MANDI infarct
V. Vascular encephalopathy
. Action hand tremor
-Fall precautions
-Continue Telemetry monitoring.
-Brain MRI wo teresita
-CTA head/neck
-Please check TFTs
-ASA 81 mg QD
-Cardiology consult to clarify prior cardiac history sine the family is unaware about A-Fib.
-Please obtain medical records from [facility]
-PT
-DVT prophylaxis.
I personally reviewed all radiology and labs along with past medical records pertinent to current medical problems. Total time spent in patient care is 60 minutes.
Thank you for allowing us to participate in the care of this patient. We will continue to follow. Please do not hesitate to contact us with any questions or concerns.
Subjective/Objective
Subjective Data
Date of Service: March 20, 2024
Objective Data
Vital Signs
Temp Pulse Resp BP Pulse Ox
36.6 C 67 15 124/86 96
03/20/24 08:16 03/20/24 08:16 03/20/24 08:16 03/20/24 08:16 03/20/24 09:54
Lab Results
03/20/24 09:00
03/20/24 09:00
Sodium 141 mmol/L (135-145) 03/20/24 09:00
Potassium 4.4 mmol/L (3.5-5.1) 03/20/24 09:00
BUN 21 mg/dl (9-20) H 03/20/24 09:00
Glucose 103 mg/dl (70-99) H 03/20/24 09:00
Calcium 9.0 mg/dl (8.4-10.2) 03/20/24 09:00
Patient Allergies
Horse/Equine Containing Products Allergy (Verified 10/02/22 01:09)
Anaphylaxis - horse serum
Tetanus Vaccines and Toxoid [Tetanus] Allergy (Verified 10/02/22 01:09)
Anaphylaxis
Medications
-
Home Medications
�Medication �Instructions �Recorded
abiraterone 250 mg tablet (Zytiga) 1,000 mg PO HS Cancer 09/05/22
docusate sodium 100 mg capsule 200 mg PO DAILY Gastrointestinal 09/05/22
(Colace) issue
ascorbic acid (vitamin C) 500 mg 500 mg PO DAILY 08/03/23
tablet (Vitamin C)
cholecalciferol (vitamin D3) 25 25 mcg PO DAILY 08/03/23
mcg (1,000 unit) tablet (Vitamin
D3)
glucosam 750 mg-chondroi 100 1 tab PO DAILY 08/03/23
mg-hyalur 1.65 mg-CF borate 108 mg
tablet (Move Free SOLO)
ibuprofen 200 mg tablet (Advil) 200 mg PO Q6HPRN PRN mild pain 08/03/23
potassium chloride 20 mEq 20 meq PO BID 08/03/23
tablet,extended release
spironolactone 25 mg tablet 25 mg PO DAILY #30 tabs 08/04/23
darolutamide 300 mg tablet (Nubeqa) 600 mg PO BID 03/20/24
prednisone 5 mg tablet 2.5 mg PO DAILY 03/20/24
Vital Signs and Labs
-
Vital Signs and Labs:
Vital Signs
Temp Pulse Resp BP Pulse Ox
36.6 C 87 17 111/72 96
03/20/24 08:16 03/20/24 14:00 03/20/24 11:30 03/20/24 12:00 03/20/24 12:15
Lab Results
03/20/24 09:00
03/20/24 09:00
Sodium 141 mmol/L (135-145) 03/20/24 09:00
Potassium 4.4 mmol/L (3.5-5.1) 03/20/24 09:00
BUN 21 mg/dl (9-20) H 03/20/24 09:00
Glucose 103 mg/dl (70-99) H 03/20/24 09:00
Calcium 9.0 mg/dl (8.4-10.2) 03/20/24 09:00
Home Medications
-
Home Medications
docusate sodium 100 mg capsule (Colace) 200 mg PO DAILY Gastrointestinal issue 09/05/22
ascorbic acid (vitamin C) 500 mg tablet (Vitamin C) 500 mg PO DAILY 08/03/23
cholecalciferol (vitamin D3) 25 mcg (1,000 unit) tablet (Vitamin D3) 25 mcg PO DAILY 08/03/23
glucosam 750 mg-chondroi 100 mg-hyalur 1.65 mg-CF borate 108 mg tablet (Move Free SOLO) 1 tab PO DAILY 08/03/23
ibuprofen 200 mg tablet (Advil) 200 mg PO Q6HPRN PRN mild pain 08/03/23
spironolactone 25 mg tablet 25 mg PO DAILY #30 tabs 08/04/23
darolutamide 300 mg tablet (Nubeqa) 600 mg PO BID 03/20/24
donepezil 5 mg tablet 5 mg PO DAILY 03/20/24
potassium chloride 20 mEq oral packet (Klor-Con) 20 meq PO BID 03/20/24
prednisone 2.5 mg tablet 2.5 mg PO DAILY 03/20/24
--- NOTE | 2024-03-20 13:45 | HPS.HSE ---
Family Physician
-
Family Physician: Dany Fitzgerald
Chief Complaint
-
posterior headache associated with n/v
History of Present Illness
79-year-old male with a past medical history of CVA, hypertension, prostate cancer who presents to the ER for evaluation of headache and dizziness. stated posterior DE SOUZA associated with dizzy. he felt off balance every time he is up .patient denied
any blurry vision, numbness, tingling. Patient denies any chest pain or short of breath. Patient denies any abdominal pain, nausea, vomiting, diarrhea. Patient denies dysuria, hematuria.
at present no DE SOUZA, since he got Tylenol, Benadryl, Toradol, Reglan in ER. admitting for further management.
Medical History
Past Medical History
Past Medical History: Reports Other
Additional Past Medical History:
Hyperlipidemia
Prostate cancer
Intraparenchymal hemorrhage of brain
Her right hemiparesis
Hypertension
Aortic wall insufficiency
Past Surgical History: Reports Other
Additional Past Surgical History:
Prostatectomy
Vasectomy
Social History
Tobacco: Non-smoker
Alcohol: Occasional
Drug: None
Personal:
Employment: Retired
Family History
Family History: Not pertinent
Allergies / Home Medications
Allergies reflects when Allergies were last updated in [facility].
Home Medications with original date entered in [facility]
Allergy/Medication List:
Allergies
Allergy/AdvReac Type Severity Reaction Status Date / Time
Horse/Equine Containing Allergy Anaphylaxis Verified 10/02/22 01:09
Products - horse
serum
Tetanus Vaccines and Toxoid Allergy Anaphylaxis Verified 10/02/22 01:09
[Tetanus]
Home Medications
abiraterone 250 mg tablet (Zytiga) 1,000 mg PO HS Cancer 09/05/22
docusate sodium 100 mg capsule (Colace) 200 mg PO DAILY Gastrointestinal issue 09/05/22
ascorbic acid (vitamin C) 500 mg tablet (Vitamin C) 500 mg PO DAILY 08/03/23
cholecalciferol (vitamin D3) 25 mcg (1,000 unit) tablet (Vitamin D3) 25 mcg PO DAILY 08/03/23
glucosam 750 mg-chondroi 100 mg-hyalur 1.65 mg-CF borate 108 mg tablet (Phorest) 1 tab PO DAILY 08/03/23
ibuprofen 200 mg tablet (Advil) 200 mg PO Q6HPRN PRN mild pain 08/03/23
potassium chloride 20 mEq tablet,extended release 20 meq PO BID 08/03/23
spironolactone 25 mg tablet 25 mg PO DAILY #30 tabs 08/04/23
darolutamide 300 mg tablet (Nubeqa) 600 mg PO BID 03/20/24
prednisone 5 mg tablet 2.5 mg PO DAILY 03/20/24
Review of Systems
-
Constitutional: Reports No Symptoms
EENT: Reports No Symptoms
Respiratory: Reports No Symptoms
Cardiac: Reports No Symptoms
Abdomen/GI: Reports No Symptoms
: Reports No Symptoms
Musculoskeletal: Reports No Symptoms
Skin: Reports No Symptoms
Neurological: Reports Dizzy and Headache
Endocrine: Reports No Symptoms
Hematologic/Lymphatic: Reports No Symptoms
Psych: Reports No Symptoms
Physical Exam
Vital Signs
Vital Signs
Temp Pulse Resp BP Pulse Ox
97.8 F 72 17 111/72 96
03/20/24 08:16 03/20/24 12:15 03/20/24 11:30 03/20/24 12:00 03/20/24 12:15
Physical Exam
General: Well Developed, Well Nourished and No Apparent Distress
HEENT: NormoCephalic, Moist mucous membranes and Atraumatic
Respiratory: Clear
Cardiac: S1/S2 and Regular Rhythm; No Murmur or Rub
GI: Soft, Non Tender, Non Distended and Normal Bowel Sounds; No Organomegaly
Rectal: Deferred by Provider
Musculoskeletal: No Clubbing, No Cyanosis and No Edema
Skin: No Rash
Neuro: AO x 3 and Nonfocal/grossly intact
Psych: Calm
Laboratory Results
-
03/20/24 09:00
03/20/24 09:00
Laboratory Results
Total Bilirubin 0.2 mg/dl (0.2-1.3) 03/20/24 09:00
AST 25 U/L (17-59) 03/20/24 09:00
ALT 21 U/L (0-50) 03/20/24 09:00
Alkaline Phosphatase 96 U/L (38-126) 03/20/24 09:00
Data Reviewed
-
CT Scan: Report Reviewed by me
Lab Data: Labs Reviewed by me
Impression/Plan
-
#dizzy associated with DE SOUZA r/o acute CVA
-CT head negative.Stable findings suggesting a small old right frontal lobe infarct.
-stroke protocol
-obtian a1c,lipid profile
-statin and asa
-PT/OT
-obtain MRi/MRA
-neurology consulted
# Anemia of chronic disease
-Hemoglobin stable at 10.6
-No active bleeding
-Continue to monitor
# Essential HTN
-spironolactone continued
#Prostate cancer s/p prostatectomy/radiation
-prednisone continued
-darolutamide continued
� �
#history of intracranial hemorrhage in oct 03 and some residual memory loss
#mild demential
-Aricept continued
#DVT prophylaxis
-scd
Full code
--- NOTE | 2024-03-20 14:14 | W.PN.UPDATE ---
Update Note
Progress Note Update
This is an addendum to the H&P written by Maria Del Carmen Sommer on 03/20/2024. Patient seen and examined independently with DATABASE DESIGN ANALYST.
79-year-old male past medical history of syncopal episode secondary to sinus bradycardia, hypertension, prostate cancer status post prostatectomy/radiation, intracranial hemorrhage, hyperlipidemia, presenting for posterior headache/dizziness and
off-balance since yesterday evening.
CT head shows no acute intracranial abnormality. There is small old right frontal lobe infarct. Labs unremarkable. Presentation is concerning for new CVA.
Patient given aspirin, Benadryl, ketorolac, Reglan given. IV fluids given. Possible the patient has a migraine versus CVA. Check MRI/MRA brain. Check A1c and lipid panel. PT/OT. Neurology consulted.
[2024-03-20] MEDS: ASPIRIN 325 MG PO (14:17)
--- NOTE | 2024-03-20 20:00 | PTCARENOTE ---
Rn FlowPatient's admission completed. Patient is on Nubequa which is a chemo drug. Patient requires a private room. Patient's states that she cannot leave medication at the hospital because it cost [phone].
--- NOTE | 2024-03-20 21:40 | PTCARENOTE ---
Received pt from ED via stretcher. Pt ambulated to bed x1 with RW. AAOx 2-3. Forgetful, bed alarm placed and plugged in. No complaints of pain. monitoring tech placed. Assessed and oriented to room. Pt verbalized understanding of call lyman. Call
lyman within close reach. Will continue to monitor.
[2024-03-20] MEDS: LIPITOR 40 MG PO (22:36)
[2024-03-20] MEDS: KLOR-CON 20 MEQ PO (22:36)
[2024-03-21] VITALS (9 sets, daily range): BP systolic 112–141; BP diastolic 68–117; PULSE 76; O2SAT 97
[2024-03-21 06:38] LABS: Hematocrit 30.8 % (39.0-52.0); Hemoglobin 10.4 g/dL (13.0-18.0); Mean Corp Hgb Conc. 33.8 g/dL (33.0-37.0); Mean Corpuscular Hgb 32.7 pg (27.0-31.0); Mean Corpuscular Volume 96.9 fL (80.0-94.0); Mean Platelet Volume 9.7 fL (7.4-10.4); Platelet Count 203 10^3/uL (130-400); Red Blood Cell Count 3.18 10^6/uL (4.70-6.10); Red Cell Dist. Width 14.4 % (11.5-14.5); White Blood Cell Count 6.1 10^3/uL (4.8-10.8)
[2024-03-21 07:04] LABS: Blood Urea Nitrogen 17 mg/dl (9-20); Calcium 8.7 mg/dl (8.4-10.2); Carbon Dioxide 26 mmol/L (22-30); Chloride 108 mmol/L (98-107); Estimated Creatinine Clearance 82 ml/min; Glucose 97 mg/dl (70-99); HDL Cholesterol 64 mg/dl; LDL Cholesterol, Calculated 121 mg/dl; Potassium 4.3 mmol/L (3.5-5.1); Sodium 143 mmol/L (135-145); Total Cholesterol 216 mg/dl (50-199); Triglyceride 159 mg/dl (10-149); Very Low Density Lipoprotein 31 mg/dl (0-30); eGFR > 60.00
[2024-03-21] MEDS: COLACE 200 MG PO (07:32)
[2024-03-21] MEDS: ARICEPT 5 MG PO (07:32)
[2024-03-21] MEDS: KLOR-CON 20 MEQ PO ×2 (07:32→18:04)
[2024-03-21] MEDS: LOW STRENGTH ASPIRIN 81 MG PO (07:32)
[2024-03-21] MEDS: DELTASONE 2.5 MG PO (07:33)
[2024-03-21] MEDS: ALDACTONE 25 MG PO (07:33)
--- NOTE | 2024-03-21 09:05 | W.PN.UPDATE ---
Update Note
Progress Note Update
79-year-old with headache
I personally performed a history and physical exam of the patient and discussed management with the resident. I reviewed the resident's note and agree with the documented findings and plan of care HPI/CC except for changes in documentation.
Echo 08/06/2023-normal LV size and systolic function. EF 55 to 60% concentric LVH. Mild MR. Mild . Mild to moderate AI. Mild TR
CVS: S1-S2 normal
Chest: CTA B/L
Abdomen: Soft, NT / Bowel sounds present
Extremities: No edema, normal pulses
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
# Dizziness with headache
CT head is negative -CT with small old right frontal infarct
Continue aspirin and statin
MRA of the neck and COW normal
MRI-no acute changes age-related parenchymal atrophy. Chronic encephalomalacia, gliosis and hemosiderin assessment deposition in the anterior right frontal lobe. Bur hole in the adjacent right frontal calvarium. Small chronic encephalomalacia in
the left BG
Neurology evaluation appreciated check orthostatics
Check urinalysis
No evidence of atrial fibrillation per previous EKGs here. Per review with cardiology outpatient cardiology documents does not say patient has a history of A-fib. Outpatient PCP also does not have information about A-fib. Likely the notes from
previous admission-Likely cardiology notes from last admission had wrong information.
# Anemia-normal iron and B12 levels. Outpatient workup
# Hypertension-on Aldactone-continue
# Hyperlipidemia-continue statin
# Prostate cancer with history of prostatectomy and radiation-On darolutamide
# Urinary stricture with dilatation and meatoplasty
# History of IC hemorrhage in September 2022
# Dementia-on Aricept-continue
# DVT prophylaxis-SCDs
# Full code
D/W
D/W RN
D/W Cards
Check U/A and Orthos
PT eval
Possible discharge
[2024-03-21 09:25] LABS: Glycohemoglobin (HgbA1c) 5.7 % (4.0-5.6)
[2024-03-21 09:37] LABS: Erythrocyte Sed Rate 22 mm/hour (0-20)
[2024-03-21 09:46] LABS: Iron 79 ug/dl (49-181)
[2024-03-21 09:56] LABS: Percent Saturation 29 % (20-50); Total Iron Binding Capacity 272 ug/dl (261-462)
[2024-03-21 10:24] LABS: C-Reactive Protein < 5.00 mg/L (0.0-10.00)
[2024-03-21 10:59] LABS: Ferritin 42.8 ng/ml (17.9-464.0)
[2024-03-21 11:13] LABS: Vitamin B12 > 1000 pg/ml (239-931)
--- NOTE | 2024-03-21 11:19 | W.PN.NEURO.1 ---
Today's Communication / Plan
-
.
Subjective/Objective
Subjective Data
Date of Service: March 21, 2024
Neurology Follow up Note.
24h events: normotensive, afebrile. Mr. Spencer reports no complaints.
Brain MRI wo sabas-no evidence of acute infarcts, chronic R MANDI infarct with ICH and encephalomalacia of the left basal ganglia.
CTA head/neck-no evidence of major intracranial branch occlusion or significant stenosis
PMH: R MANDI stoke, A-Fib, vascular dementia, stage IV prostate cancer(s/p radiation on NUBEQA), HTN, DLP, anemia, CHF, SABAS, MDD, insomnia, BPH, vit D deficiency, osteopenia
PSH: R frontal SERVICE ORDER TAKER shunt/removal; prostatectomy, pulmonary vein isolation ablation(07/15/2023), vasectomy
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
FH:family history of colon cancer
All: Tetanus antitoxin
ROS: Constitutional: Negative. Negative for chills, fever and unexpected weight change.
HENT: Negative for ear pain, hearing loss, tinnitus and trouble swallowing.
Eyes: Negative. Negative for photophobia, pain and visual disturbance.
Respiratory: Negative for cough, choking and shortness of breath.
Cardiovascular: Negative for chest pain, palpitations and leg swelling.
Gastrointestinal: Negative for abdominal pain and vomiting.
Endocrine: Negative. Negative for cold intolerance.
Genitourinary: positive for UI
Musculoskeletal: Negative for back pain, gait problem, neck pain and neck stiffness.
Skin: Negative for rash.
Allergic/Immunologic: Negative. Negative for immunocompromised state.
Neurological: positive for R HP, ataxia, headache
Psychiatric/Behavioral: positive for confusion
General: Well developed. In no acute distress.
Cardio: Regular rate and rhythm without murmur. Extremities are without cyanosis or edema.
Neuro:
Mental Status: Alert, oriented to name, age, location, month. Nonfluent. Impaired attention and comprehension. No hemineglect.
Cranial Nerves: Pupils are equally round and reactive to light. EOMs full. Visual webb full to confrontation. No ptosis. No nystagmus. V1-V3 intact to light touch and pinprick bilaterally, symmetric. Face symmetric. Impaired hearing AU.
The palate elevated well. SCMs and traps 5/5. Tongue midline. No dysarthria.
Motor: Normal bulk and tone with augmentation. No pronator or arm drift. Strength 5/5 throughout. No clonus.
Coordination: BL action hand tremor, no dysmetria
Gait: deferred
Assessment and Plan:
I. Ataxia
II. New onset of headache
III. History of L BG ICH(09/2021)
IV. Chronic R MANDI infarct
V. Vascular encephalopathy
. Action hand tremor
-Fall precautions
-Continue Telemetry monitoring.
-Follow up TFTs
-ASA 81 mg QD
-Cardiology consult to clarify history of A-Fib.
-PT
-DVT prophylaxis.
-OP Neurology follow up in 1-2 weeks
I personally reviewed all radiology and labs along with past medical records pertinent to current medical problems. Total time spent in patient care is 40 minutes.
Thank you for allowing us to participate in the care of this patient. Please do not hesitate to contact us with any questions or concerns.
Objective Data
Vital Signs
Temp Pulse Resp BP Pulse Ox
36.5 C 71 16 120/73 96
03/21/24 07:00 03/21/24 07:00 03/21/24 07:00 03/21/24 07:00 03/21/24 07:00
Lab Results
03/21/24 06:08
03/21/24 06:08
Sodium 143 mmol/L (135-145) 03/21/24 06:08
Potassium 4.3 mmol/L (3.5-5.1) 03/21/24 06:08
BUN 17 mg/dl (9-20) 03/21/24 06:08
Glucose 97 mg/dl (70-99) 03/21/24 06:08
Calcium 8.7 mg/dl (8.4-10.2) 03/21/24 06:08
LDL Cholesterol, Calc 121 mg/dl 03/21/24 06:08
Vitamin B12 > 1000 pg/ml (691-275) H 03/21/24 06:08
Patient Allergies
Horse/Equine Containing Products Allergy (Verified 10/02/22 01:09)
Anaphylaxis - horse serum
Tetanus Vaccines and Toxoid [Tetanus] Allergy (Verified 10/02/22 01:09)
Anaphylaxis
Vital Signs and Labs
-
Vital Signs and Labs:
Vital Signs
Temp Pulse Resp BP Pulse Ox
36.5 C 71 16 120/73 96
03/21/24 07:00 03/21/24 07:00 03/21/24 07:00 03/21/24 07:00 03/21/24 07:00
Lab Results
03/21/24 06:08
03/21/24 06:08
Sodium 143 mmol/L (135-145) 03/21/24 06:08
Potassium 4.3 mmol/L (3.5-5.1) 03/21/24 06:08
BUN 17 mg/dl (9-20) 03/21/24 06:08
Glucose 97 mg/dl (70-99) 03/21/24 06:08
Calcium 8.7 mg/dl (8.4-10.2) 03/21/24 06:08
LDL Cholesterol, Calc 121 mg/dl 03/21/24 06:08
Vitamin B12 > 1000 pg/ml (665-911) H 03/21/24 06:08
Medications
-
Medications:
Generic Name Dose Route Start Last Admin
Trade Name Freq PRN Reason Stop Dose Admin
Acetaminophen 650 mg 03/20/24 21:12
Acetaminophen 650 Mg Rectal Suppository RECTAL 04/17/24 21:11
Q4HPRN PRN
DE SOUZA, mild pain, or temp >100.4F
Acetaminophen 650 mg 03/20/24 21:12
Acetaminophen 325 Mg Tablet PO 04/17/24 21:11
Q4HPRN PRN
DE SOUZA, mild pain, or temp >100.4F
Aspirin 81 mg 03/21/24 08:00 03/21/24 07:32
Aspirin 81 Mg Chewable Tablet PO 04/18/24 07:59 81 mg
DAILY LOURDES Administration
Atorvastatin Calcium 40 mg 03/20/24 21:12 03/20/24 22:36
Atorvastatin (Lipitor) 40 Mg Tablet PO 04/17/24 21:11 40 mg
QPM LOURDES Administration
Docusate Sodium 200 mg 03/21/24 08:00 03/21/24 07:32
Docusate Sodium 100 Mg Capsule PO 04/18/24 07:59 200 mg
DAILY LOURDES Administration
Donepezil HCl 5 mg 03/21/24 08:00 03/21/24 07:32
Donepezil 5 Mg Tablet PO 04/18/24 07:59 5 mg
DAILY LOURDES Administration
Darolutamide [Nubeqa 0 mg 03/20/24 20:00 03/21/24 07:32
] 600 Mg (2 X 300 Mg PO 04/17/24 19:59 Not Given
Tablets)Po Bid BID LOURDES
Potassium Chloride 20 meq 03/20/24 20:00 03/21/24 07:32
Potassium Chloride 20 Meq Powder Packet PO 04/17/24 19:59 20 meq
BID LOURDES Administration
Prednisone 2.5 mg 03/21/24 08:00 03/21/24 07:33
Prednisone 5 Mg Tablet PO 04/18/24 07:59 2.5 mg
DAILY LOURDES Administration
Sodium Chloride 0 flush 03/20/24 22:00
Sodium Chloride 0.9% (Flush) Syringe IV 04/17/24 21:59
PER PROTOCOL LOURDES
Spironolactone 25 mg 03/21/24 08:00 03/21/24 07:33
Spironolactone 25 Mg Tablet PO 04/18/24 07:59 25 mg
DAILY LOURDES Administration
Home Medications
-
Home Medications
docusate sodium 100 mg capsule (Colace) 200 mg PO DAILY Gastrointestinal issue 09/05/22
ascorbic acid (vitamin C) 500 mg tablet (Vitamin C) 500 mg PO DAILY Supplement 08/03/23
cholecalciferol (vitamin D3) 25 mcg (1,000 unit) tablet (Vitamin D3) 25 mcg PO DAILY Supplement 08/03/23
glucosam 750 mg-chondroi 100 mg-hyalur 1.65 mg-CF borate 108 mg tablet (Move Free Neofonie) 1 tab PO DAILY Supplement 08/03/23
ibuprofen 200 mg tablet (Advil) 200 mg PO Q6HPRN PRN mild pain 08/03/23
spironolactone 25 mg tablet 25 mg PO DAILY #30 tabs 08/04/23
darolutamide 300 mg tablet (Nubeqa) 600 mg PO BID Prostate Cancer 03/20/24
donepezil 5 mg tablet 5 mg PO DAILY Neurological Condition 03/20/24
potassium chloride 20 mEq oral packet (Klor-Con) 20 meq PO BID Electrolyte Repletion 03/20/24
prednisone 2.5 mg tablet 2.5 mg PO DAILY Anti-Inflammatory 03/20/24
--- NOTE | 2024-03-21 12:51 | CON.CAR ---
Addendum entered and electronically signed by Fredrick Verdin MD 03/22/24 14:30:
I saw and examined the patient.
The Front Edger's note was reviewed and I agree with the note.
Comment:
GEN: No distress, awake, Ox3
HEENT: supple, anicteric, mmm
LUNGS: CTA, no wheezes/rales
CV: Reg, S1/S2, 1/6 syst LSB, no gallop
ABD: soft, BS+, NT/ND
EXT: No edema
NEURO: Gross non-focal
SKIN: No rash
Plan:
Of note, the patient was seen on March 21, 2024 at 5 PM. The note did not transfer until March 22, 2024.
He has a past medical history of hypertension, prostate cancer, hemorrhagic stroke September 2022, hyperlipidemia, and mild aortic stenosis. He presents today with headache dizziness and balance issues. We are asked to evaluate him regarding possible
atrial fibrillation.
Records were reviewed and the patient has no significant history of atrial fibrillation or ablation. I reviewed his imaging. Head CT has no acute stroke along with CTA of the head and neck with no major intracranial occlusions or stenosis. MRI of
the brain also revealed no acute infarct.
His telemetry is overall normal. Echocardiogram with preserved ejection fraction, mild aortic stenosis with a mean gradient of 17, mild to moderate AI.
From a cardiac standpoint he is stable. Would recommend continuing telemetry while hospitalized. Stable for discharge from cardiology standpoint
Original Note:
Consultation
Consultation Request
Date/Time Consultation Requested: 03/21/2024
Date/Time Consultation Performed: 03/21/2024
Requesting Provider: Dr. Rdz
Performing Provider: Karen Barajas PA-C for Dr. Fredrick Verdin
Reason for Consultation: Dizziness
Medical History
-
History of Present Illness:
Patient is a 79-year-old male with past medical history significant for hypertension, LVH, aortic insufficiency, aortic stenosis, hyperlipidemia, intracranial hemorrhage/hemorrhagic stroke 09/30/2022, prostate cancer status post prostatectomy
followed by [facility] on [facility], history of urinary tract infections and syncope 07/2023 who presents to emergency department 03/20/2024 with headache, dizziness and balance issues. Patient's reports night prior to presentation
patient complained of headache and she thought he was dehydrated so she gave him some electrolytes and water. They then went to bed and upon awakening around 5 AM in the morning he continues to complain of headache associated with weakness and
difficulty standing with balance issues. reports 'he looks very wobbly' and she called 911. Head CT showed no acute intracranial abnormality with old frontal stroke. CTA of head and neck showed no evidence of major intracranial occlusion or
stenosis. EKG showed sinus bradycardia with occasional PACs. BP on presentation 124/86. Due to ongoing concerns of posterior stroke he had MRI of brain which showed no acute infarct with chronic anterior right frontal stroke. MRA of head and
neck showed no intracranial stenosis, dissection or occlusion.
At time of this evaluation patient sitting in chair just completing physical therapy. He reports improvement of dizziness. He denies chest pain, shortness of breath, palpitations, edema, orthopnea or PND.
at bedside
PMH:
Hypertension
LVH
Aortic insufficiency
Aortic stenosis
Hyperlipidemia
Syncope 07/2023
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
Prostate cancer status post prostatectomy on on [facility] ([facility])
History of UTI
Past Medical History
Past Medical History: Other (in HPI)
Past Surgical History: Urological (Prostatectomy, vasectomy) and Other
Social History
Tobacco: Non-Smoker
Alcohol: Occasional
Drug: None
Personal:
Living: With Family
Family History
Family History: Reviewed & Not Pertinent
Allergies / Home Medications
Allergy/AdvReac Type Severity Reaction Status Date / Time
Horse/Equine Containing Allergy Anaphylaxis Verified 10/02/22 01:09
Products - horse
serum
Tetanus Vaccines and Toxoid Allergy Anaphylaxis Verified 10/02/22 01:09
[Tetanus]
�Medication �Instructions �Recorded �Confirmed �Type
docusate sodium 100 mg capsule 200 mg PO DAILY Gastrointestinal 09/05/22 03/20/24 History
(Colace) issue
ascorbic acid (vitamin C) 500 mg 500 mg PO DAILY Supplement 08/03/23 03/20/24 History
tablet (Vitamin C)
cholecalciferol (vitamin D3) 25 25 mcg PO DAILY Supplement 08/03/23 03/20/24 History
mcg (1,000 unit) tablet (Vitamin
D3)
glucosam 750 mg-chondroi 100 1 tab PO DAILY Supplement 08/03/23 03/20/24 History
mg-hyalur 1.65 mg-CF borate 108 mg
tablet (Move Free Contests4Causes)
ibuprofen 200 mg tablet (Advil) 200 mg PO Q6HPRN PRN mild pain 08/03/23 03/20/24 History
spironolactone 25 mg tablet 25 mg PO DAILY #30 tabs 08/04/23 03/20/24 Rx
darolutamide 300 mg tablet (Nubeqa) 600 mg PO BID Prostate Cancer 03/20/24 03/20/24 History
donepezil 5 mg tablet 5 mg PO DAILY Neurological 03/20/24 03/20/24 History
Condition
potassium chloride 20 mEq oral 20 meq PO BID Electrolyte Repletion 03/20/24 03/20/24 History
packet (Klor-Con)
prednisone 2.5 mg tablet 2.5 mg PO DAILY Anti-Inflammatory 03/20/24 03/20/24 History
Review of Systems
-
History Source: Patient
All other systems: Negative unless noted
Physical Exam
Vital Signs
Temp Pulse Resp BP Pulse Ox
97.6 F 77 17 134/85 96
03/21/24 11:00 03/21/24 11:00 03/21/24 11:00 03/21/24 11:00 03/21/24 11:00
GEN: No distress, awake, Ox3, sitting in chair just completed working with physical therapy
HEENT: supple, anicteric, mmm
LUNGS: CTA, no wheezes/rales
CV: Reg, S1/S2, 2/6 harsh systolic murmur at right sternal border, no rub or gallop
ABD: soft, BS+, NT/ND
EXT: No edema, no clubbing or cyanosis
NEURO: Gross non-focal
SKIN: No rash, warm, dry,
Lab Results
03/21/24 06:08
03/21/24 06:08
Impression / Plan
-
PCP: Dany Fitzgerald
Lapping Machine Operator: Dr. Vincent Lloyd, last seen February 2022
Impression:
Presented 03/20/2024 with headache, dizziness, balance issues
Hypertension
LVH
Aortic insufficiency
Aortic stenosis
Hyperlipidemia
Syncope 07/2023
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
Prostate cancer status post prostatectomy on on [facility] ([facility])
History of UTI
Echo 08/04/2023: EF 55 to 60%. Mild concentric LVH. Mild MR. Mild AAS with peak/mean gradient 40/18 mmHg with FLIP 1.5 cm�. Mild to moderate AI. Mild TR. PAP 20 to 25 mmHg. AAS was new compared to echo in 2020
ECHO 11/2020: EF 60 to 65%, moderate LVH, mild mitral regurgitation, aortic sclerosis, mild to moderate AR, normal right heart with top normal pulmonary pressures
Plan:
-Presented 03/20/2024 with headache, dizziness, balance issues.
-Patient underwent numerous neurologic imaging including head CT, MRI of brain, MRA of head and neck. There was no new acute findings. There was old right frontal stroke. CTA of head and neck/MRA of head and neck showed no acute occlusion,
stenosis or dissection of carotid or intracranial vessels.
-Dizziness now resolved with IV hydration. Patient denies any cardiac symptoms including chest pain, shortness of breath, palpitations, edema, orthopnea, PND
-Patient currently in sinus rhythm. Per review of telemetry no evidence of arrhythmia noted.
-Reviewed PT/OT assessment. Patient appears to be at baseline. Recommending going home with home health
-Blood pressure seems reasonably controlled on Aldactone.
-Patient does have history of aortic insufficiency and aortic stenosis. Will repeat echocardiogram to rule out progression of aortic valve disease.
-Total cholesterol 216, HDL 64, LDL 121, triglycerides 159, Hemoglobin A1c 5.7%. Patient has no history of coronary artery disease although has had hemorrhagic stroke. May benefit from low-dose statin
-Per review with patient, patient's as well as outpatient cardiology note and PCP note patient does not have a history of atrial fibrillation has never had an ablation and has never been on anticoagulation.
HPI 03/21/2024:
Patient is a 79-year-old male with past medical history significant for hypertension, LVH, aortic insufficiency, aortic stenosis, hyperlipidemia, intracranial hemorrhage/hemorrhagic stroke 09/30/2022, prostate cancer status post prostatectomy
followed by [facility] on [facility], history of urinary tract infections and syncope 07/2023 who presents to emergency department 03/20/2024 with headache, dizziness and balance issues. Patient's reports night prior to presentation
patient complained of headache and she thought he was dehydrated so she gave him some electrolytes and water. They then went to bed and upon awakening around 5 AM in the morning he continues to complain of headache associated with weakness and
difficulty standing with balance issues. reports 'he looks very wobbly' and she called 911. Head [address] showed no acute intracranial abnormality with old frontal stroke. CTA of head and neck showed no evidence of major intracranial occlusion or
stenosis. EKG showed sinus bradycardia with occasional PACs. BP on presentation 124/86. Due to ongoing concerns of posterior stroke he had MRI of brain which showed no acute infarct with chronic anterior right frontal stroke. MRA of head and
neck showed no intracranial stenosis, dissection or occlusion.
At time of this evaluation patient sitting in chair just completing physical therapy. He reports improvement of dizziness. He denies chest pain, shortness of breath, palpitations, edema, orthopnea or PND.
at bedside
Data Reviewed
-
EKG: Report Reviewed by me, Discussed with Physician, Discussed with Nurse, Discussed with Patient and Discussed with Family
CT Scan: Report Reviewed by me, Discussed with Physician, Discussed with Patient and Discussed with Family
MRI: Report Reviewed by me, Discussed with Physician, Discussed with Patient and Discussed with Family
Labs: Labs Reviewed by me, Discussed with Physician and Discussed with Family
Old Records: Reviewed
--- NOTE | 2024-03-21 14:29 | W.PN.HOSP.TC ---
Today's Communication/Plan
-
PT OT consultation
Plan discharge in collaboration with neurology and cardiology
Assessment / Plan
Assessment / Plan
IMPRESSION
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
ASSESSMENT AND PLAN
#Occipital headache and ataxia
Patient had a 5 /10 occipital headache associated with nausea and vomiting On March 20, [address] scan in the emergency which showed no acute changes
Had an MRI of the brain that did not show any acute changes
MRA of head and neck showed no intracranial stenosis, dissection or occlusion.
CTA showed patent [place] of [place] and vertebral arteries
Neurology consultation appreciated-Old stroke, patient symptomatically improved and workup negative for any new event, neurology will follow-up on outpatient basis
-Cardiology consult appreciated-no coronary artery disease/arrhythmia
Total cholesterol 216, HDL 64, LDL 121, triglycerides 159,
Hemoglobin A1c 5.7%
Started on aspirin and low dose statin
#Sinus Rythum
Patient's past medical records were reviewed for any cardiac issues
There was a note of atrial fibrillation that the family was unaware of, cardiology consultation was made for review
Based on the patient and his 's history, outpatient cardiology note, PCP note, and current cardiac consultation patient has no history of atrial fibrillation and never had an ablation
#Prostate cancer
Treated with surgery and radiation therapy
Follows up at [facility] on [facility]
Takes prednisone 2.5 mg twice daily as part of cancer treatment
Takes potassium supplementation
#Hypertension
Continue home dose of spironolactone 25 mg daily
#Dementia
Affected short-term memory
Takes donepezil 5 mg daily
Has a supportive spouse who helps him in his activities of daily living
#PT/OT evaluation
Patient was able to perform well with the help of spouse
Needs some help with activities like showering
OT evaluation feels like patient is at baseline now
-
CODE STATUS full code
DVT prophylaxis
Sequential compression devices
Anticipated Discharge: 24 - 48 hours
Subjective/Interval History
-
Date of Service: March 21, 2024
Does not have a headache, feels better and now can walk and maintain balance
Objective Data
-
Labs:
Laboratory Results
03/21/24
06:08
WBC 6.1
Hgb 10.4 L
Hct 30.8 L
Plt Count 203
Sodium 143
Potassium 4.3
Chloride 108 H
Carbon Dioxide 26
BUN 17
Creatinine 0.8
Glucose 97
Calcium 8.7
Vital Signs:
Vital Signs
Temp Pulse Resp BP Pulse Ox
97.6 F 77 17 134/85 96
03/21/24 11:00 03/21/24 11:00 03/21/24 11:00 03/21/24 11:00 03/21/24 11:00
I&O
03/20/24 03/21/24 03/22/24
06:59 06:59 06:59
Intake Total 120 / 120
Output Total 200 / 200
Balance -80 / -80
Review of Systems
-
All other systems: Reviewed and negative
Physical Exam
-
General: Well Developed, Well Nourished, No Apparent Distress, Comfortable and Conversant
HEENT: Normocephalic and Atraumatic
Respiratory: Clear to Auscultation
Cardiac: Regular Rhythm and S1/S2
GI: Soft, Nontender, Nondistended and Normal Bowel Sounds
Genito-urinary: No Costovertebral Tender
Musculoskeletal: No Clubbing, No Cyanosis and No Edema
Skin: Warm
Neuro: Awake and Alert
Hematologic / Lymphatic: No Lymphadenopathy
Psych: Calm
[2024-03-21 15:15] LABS: Urine Albumin Negative (Neg - Trace); Urine Bilirubin Negative (Negative); Urine Character Clear (Clear); Urine Color Yellow; Urine Glucose Negative (Negative); Urine Ketone Negative (Negative); Urine Leukocyte 2+ (Negative); Urine Nitrite Negative (Negative); Urine Occult Blood 1+ (Negative); Urine Urobilinogen Negative (Neg - 1+)
[2024-03-21 15:41] LABS: Urine Bacteria Moderate (Negative)
--- NOTE | 2024-03-21 15:51 | PTOTSP ---
SPEECH THERAPY SPEECH/LANGUAGE/COGNITIVE COMMUNICATION AND SWALLOW EVALUATION:
Patient exhibits grossly functional oropharyngeal swallow at this time. Patient appears to be at baseline level of swallow function. MRI currently negative for acute CVA. History of CVA noted. Recommend continue Regular texture solids, thin liquids.
Medications whole with liquid as best tolerated. General aspiration precautions. Skilled ST services for swallow therapy are not indicated at this time.
Patient exhibits mild expressive/receptive language and moderate cognitive communication impairments characterized by impairments in executive functioning skills, visuospatial awareness, STM, attention, orientation, processing speed. MOCA version
8.1 was administered, with patient scoring 16/30, indicating below normal level (greater than or equal to 26/30). Patient with history of CVA with residual cognitive communication impairments per at bedside, who reported no worsened deficits
at this time. MRI negative for acute CVA. Patient appears to be at baseline level of speech/language/cognitive communication functioning at this time. Skilled ST services for speech/language/cognitive communication are not indicated at this time.
ST to sign off.
RECOMMEND:
1) Regular texture diet, thin liquids
2) Medications whole with liquid as best tolerated
3) General aspiration precautions
4) No skilled ST services are indicated at this time as patient appears to be at baseline level of functioning; ST to sign off
--- NOTE | 2024-03-21 15:57 | CM ---
Reviewed chart, met with patient to obtain information for assessment. Patient's was at bedside. Patient's stated that patient lives with her and their daughter in a two story home with two steps to enter. Patient's stated that
patient is independent with his ADLs, dressing, bathing, personal care and toileting. He uses a cane to assist with his ambulation. 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 Patient's does all the cooking, cleaning and laundry. She drives and can
get patient to his appointments.
Patient's denied any other DME.
He has had [facility] in the past (not [facility])
Patient has been to acute rehab in the past, at [facility] in [place].
Patient has a prescription plan and uses, [facility] [place] for all of his medications.
His PCP is, Dany Martin.
Patient's stated that she feels she will be able to bring patient home when stable.
YANCY reviewed and signed, now on chart.
Plan: Case management will continue to follow and assist with discharge planning. Home when stable.
[2024-03-21] MEDS: ROCEPHIN 1000 MG IV (16:44)
[2024-03-21] MEDS: STERILE WATER FOR INJECTION 10 ML IV (16:48)
[2024-03-21] MEDS: LIPITOR PO ×2 (17:14→17:23)
[2024-03-22 02:53] LABS: Hepatitis C Antibody Negative (Negative)
[2024-03-22 03:39] VITALS: BP 106/72
[2024-03-22] MEDS: LOW STRENGTH ASPIRIN PO (07:43)
[2024-03-22] MEDS: ARICEPT 5 MG PO (07:46)
[2024-03-22] MEDS: COLACE 200 MG PO (07:46)
[2024-03-22] MEDS: ALDACTONE 25 MG PO (07:46)
[2024-03-22] MEDS: DELTASONE 2.5 MG PO (07:46)
[2024-03-22] MEDS: KLOR-CON 20 MEQ PO (07:47)
--- NOTE | 2024-03-22 07:47 | W.DCSUMMARY ---
Discharge Summary
Discharge Data
Date of Admission: 03/20/24
Date of Discharge: 03/22/24
-
Pending Results: No
Additional Pending Results:
Follow urine culture -send results to PCP
Hospital Course
Discharging Physician : Dr. Hina Rdz, Dr.Sandal Franco
Disposition : Home
Primary care physician : Evelio Fitzgerald J
Principal Discharge diagnosis : Occipital headache/ Ataxia/ UTI
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
Hospital Course :
79-year-old male who presented to emergency with complaint of occipital headache and ataxia that began on March 20, 2024.
Patient has history of chronic UTIs and prostate cancer so initially the patient and his thought it might be due to decreased fluid intake so they tried Pedialyte and oral fluids at home but patient was brought to the emergency when it
persisted .
The patient had an extensive workup including CT scan of the head, MRI of brain, MRA and CTA angio of the blood vessels, it was all negative with no acute changes. Neurology consultation was made, they evaluated the patient and confirmed that there
were no acute changes and would follow the patient on outdoor basis and advised aspirin and statin.
The patient was also evaluated by cardiology, who suggested that patient has no coronary artery disease and no atrial fibrillation. They started him on low-dose statin for hyperlipidemia.
PT/OT consultation was suggestive that the patient can complete activities of daily living with the help of the supportive spouse.
Urine analysis showed UTI which was treated with ceftriaxone.
Patient had a relieving headaches and ataxia on the next day of admission and was advised to follow-up with neurology on outpatient basis.
Important imaging findings :
HEAD CT IMPRESSION:
No acute intracranial abnormality noted.
Stable findings suggesting a small old right frontal lobe infarct.
HEAD CTA IMPRESSION:
There is no evidence of major intracranial branch occlusion or significant stenosis
There is a small amount of partially calcific atherosclerotic plaque at the proximal right internal carotid artery without significant stenosis
There is moderate diffuse cortical and cerebellar atrophy with stable old 3.5 cm right frontal infarct
BRAIN MRI FINDINGS
Mild to moderate age-related parenchymal atrophy. Chronic encephalomalacia, gliosis, and hemosiderin deposition in the anterior right frontal lobe. Selene hole in the adjacent right frontal calvarium suggesting changes of previous ventricular catheter
placement. Small chronic encephalomalacia of the left basal ganglia centered at the genu of the internal capsule. No mass effect, midline shift, or extra axial collection. No abnormal signal intensity on diffusion-weighted images.
BRAIN MRA FINDINGS:
The anterior and posterior circulation is patent. There is no high-grade stenosis or occlusion. The bilateral middle cerebral artery branch vessels show symmetric signal intensity. No intracranial aneurysm is identified.
The intracranial segments of the bilateral internal carotid arteries are patent.
The basilar artery is patent. The distal segments of the bilateral vertebral arteries are patent
NECK MRA FINDINGS:
The bilateral common carotid arteries, internal carotid arteries, and external carotid arteries are patent. No high-grade stenosis or occlusion.
The bilateral vertebral arteries are patent. The right vertebral artery is dominant, and the left vertebral artery is hypoplastic.
The aortic arch branch vessels are patent.
Discharge Plan
-
Patient Disposition: Home (Routine Discharge)
Discharge Diagnosis/Procedures: UTI
Headache
Leaky aortic valve
Anemia
Hypertension
However high cholesterol
Prostate cancer
Dementia
Condition: Fair
Diet: 2 Gram Sodium
Activity: As tolerated
Driving Restrictions: As prior to admission
Bathing Restrictions: OK to Shower
Other Services: PT
Activity Restrictions/Additional Instructions:
Urine cultures are pending at discharge. Workup of anemia as outpatient. Follow-up with your primary physician. Stop Motrin
Referrals:
Dany Fitzgerald, [Family Provider] - in less than 1 week
Vincent Lloyd MD [Active] -
Additional Discharge Medication Instructions: Check with Krishna ott about continuation of aspirin and statin along with prostate cancer medications
Prescriptions:
New
atorvastatin 40 mg Tablet
40 mg PO QPM 30 Days Qty: 30 0RF
aspirin 81 mg Tablet,Chewable
81 mg PO DAILY 30 Days Qty: 30 0RF
cefdinir 300 mg capsule
300 mg PO BID 7 Days Qty: 14 0RF
Continued
docusate sodium [Colace] 100 mg Capsule
200 mg PO DAILY
ascorbic acid (vitamin C) [Vitamin C] 500 mg Tablet
500 mg PO DAILY
cholecalciferol (vitamin D3) [Vitamin D3] 25 mcg (1,000 unit) Tablet
25 mcg PO DAILY
Move Free Joint Health 750 mg-100 mg- 1.65 mg-108 mg Tablet
1 tab PO DAILY
Nubeqa 300 mg Tablet
600 mg PO BID
donepezil 5 mg Tablet
5 mg PO DAILY
potassium chloride [Klor-Con] 20 mEq packet
20 meq PO BID
prednisone 2.5 mg Tablet
2.5 mg PO DAILY
spironolactone 25 mg Tablet
25 mg PO DAILY Qty: 30 1RF
Discontinued
ibuprofen [Advil] 200 mg Tablet
200 mg PO Q6HPRN PRN (Reason: mild pain)
Discharge Orders:
Discharge Patient (As Directed); Ordered 03/22/24
Ordered By: Omer Franco
Discharge Date and Time
Print Language: ARGENTINE
[2024-03-22 08:48] VITALS: BP 128/76
--- NOTE | 2024-03-22 11:49 | W.PN.HOSP.TC ---
Addendum entered and electronically signed by Hina Rdz MD 03/22/24 13:41:
I personally performed a history and physical exam of the patient and discussed management with the resident. I reviewed the resident's note and agree with the documented findings and plan of care HPI/CC.
Seen earlier, late documentation
79-year-old male with ataxia noted by patient's who brought him in. Patient is feeling well. Was seen by cardiology neurology as today. Cardiology note says that patient does not have any atrial fibrillation or any history of fibrillation.
is looking into getting fixed on prior admission where cardiology note states that patient has history of paroxysmal atrial fibrillation.
Aspirin and statin were started here and has reservations as he is undergoing treatment for prostate cancer. Recommended that she check with Krishna Swanson if she has questions before he takes it.
We discussed about UTI. Cultures are not back however we will treat with cefdinir based on previous cultures. We will have to follow cultures. aware about this. And agreeable with the plan.
Echo noted-no changes from before.
PT evaluation noted. Patient and declined VNA services
Home PT was recommended.
More than 30 minutes spent in discharge including
Final examination of the patient
Summarizing hospital stay
Instructions for continuing care to all relevant caregivers
Preparation of discharge records, prescriptions, and referral forms
Total time spent (in minutes): 34 min
Original Note:
Today's Communication/Plan
-
Plan discharge on oral cefdinir for 7 days
Physical therapy at home
Assessment / Plan
Assessment / Plan
IMPRESSION
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
ASSESSMENT AND PLAN
#UTI
Patient complained of urinary and frequency on admission on
urinalysis was suggestive of UTI
Patient completed two doses of ceftriaxone in the hospital
Urine culture pending
patient improved symptomatically
#Occipital headache and ataxia
Patient had a 5 /10 occipital headache associated with nausea and vomiting On March 20, [address] scan in the emergency which showed no acute changes
Had an MRI of the brain that did not show any acute changes
MRA of head and neck showed no intracranial stenosis, dissection or occlusion.
CTA showed patent [place]op[place] of [place] and vertebral arteries
Neurology consultation appreciated-Old stroke, patient symptomatically improved and workup negative for any new event, neurology will follow-up on outpatient basis
-Cardiology consult appreciated-no coronary artery disease/arrhythmia
Total cholesterol 216, HDL 64, LDL 121, triglycerides 159,
Hemoglobin A1c 5.7%
Started on aspirin and low dose statin
Patient wants to check with [facility] oncologist to continue with prostate cancer medications
#Sinus Rythum
Patient's past medical records were reviewed for any cardiac issues
There was a note of atrial fibrillation that the family was unaware of, cardiology consultation was made for review
Based on the patient and his 's history, outpatient cardiology note, PCP note, and current cardiac consultation patient has no history of atrial fibrillation and never had an ablation
#Prostate cancer
Treated with surgery and radiation therapy
Follows up at [facility] on Nubeqa
Takes prednisone 2.5 mg twice daily as part of cancer treatment
Takes potassium supplementation
#Hypertension
Continue home dose of spironolactone 25 mg daily
#Dementia
Affected short-term memory
Takes donepezil 5 mg daily
Has a supportive spouse who helps him in his activities of daily living
#PT/OT evaluation
Patient was able to perform well with the help of spouse
Needs some help with activities like showering
OT evaluation feels like patient is at baseline now
-
CODE STATUS full code
DVT prophylaxis
Sequential compression devices
Anticipated Discharge: Within 24 hours
Subjective/Interval History
-
Date of Service: March 22, 2024
No active issues
patient complains of no ataxia and is able to ambulate without any difficulties,no headache or nausea
Objective Data
-
Vital Signs:
Vital Signs
Temp Pulse Resp BP Pulse Ox
98.1 F 68 16 128/76 97
03/22/24 08:48 03/22/24 08:48 03/22/24 08:48 03/22/24 08:48 03/22/24 08:48
I&O
03/21/24 03/22/24 03/23/24
06:59 06:59 06:59
Intake Total 120 / 120 600 / 600
Output Total 200 / 200
Balance -80 / -80 600 / 600
Review of Systems
-
All other systems: Reviewed and negative
[2024-03-22 11:51] VITALS: BP 118/68
[2024-03-22 12:51] VITALS: BP 118/68
--- NOTE | 2024-03-22 14:29 | CM ---
met with patient at bedside.patient has declined hcs and will transport home.imm letter has already been signed.
== END 2024-03-22 14:16 | disposition home or self-care (01) ==
LOC: 3 WEST ACU 14:43
PROVIDERS: Registered Nurse; ADMITTING PHYSICIAN Hospitalist; ATTENDING PHYSICIAN Hospitalist; CONSULT PHYSICIAN Internal Medicine Cardiovascular Disease; CONSULT PHYSICIAN Psychiatry & Neurology Neurology; EMERGENCY PHYSICIAN Emergency Medicine; FAMILY PHYSICIAN Family Medicine
DX: N39.0 Urinary tract infection, site not specified (principal); I35.2 Nonrheumatic aortic (valve) stenosis with insufficiency; R51.9 Headache, unspecified; D63.8 Anemia in other chronic diseases classified elsewhere; I11.0 Hypertensive heart disease with heart failure; F01.A0 Vascular dementia, mild, without behavioral disturbance, psychotic disturbance, mood disturbance, and anxiety; R27.0 Ataxia, unspecified; R11.2 Nausea with vomiting, unspecified; E78.5 Hyperlipidemia, unspecified; I48.0 Paroxysmal atrial fibrillation; N40.0 Benign prostatic hyperplasia without lower urinary tract symptoms; M85.80 Other specified disorders of bone density and structure, unspecified site; G93.40 Encephalopathy, unspecified; R41.89 Other symptoms and signs involving cognitive functions and awareness; C61 Malignant neoplasm of prostate; G31.9 Degenerative disease of nervous system, unspecified; I49.1 Atrial premature depolarization; I08.3 Combined rheumatic disorders of mitral, aortic and tricuspid valves; G93.89 Other specified disorders of brain; I69.251 Hemiplegia and hemiparesis following other nontraumatic intracranial hemorrhage affecting right dominant side; Z88.7 Allergy status to serum and vaccine; Z79.52 Long term (current) use of systemic steroids; Z92.3 Personal history of irradiation; Z90.79 Acquired absence of other genital organ(s); Z79.01 Long term (current) use of anticoagulants; Z11.52 Encounter for screening for COVID-19; Z80.0 Family history of malignant neoplasm of digestive organs; Z87.440 Personal history of urinary (tract) infections; Z79.82 Long term (current) use of aspirin
CPT/HCPCS: 70450; 70496; 70498; 70544; 70548; 70551; 80048; 80053; 80061; 81003; 81015; 82607; 82728; 83036; 83540; 83550; 84443; 85025; 85027; 85652; 86140; 86803; 87077; 87086; 87186; 87811; 92523; 92610; 93005; 93306; 96374; 96375; 97116; 97162; 97167; 99285; A9585; G0378; Q9967

== ENCOUNTER 2025-05-27 09:28 | Inpatient (IN) | payer MEDICARE, OTHER, SELFPAY ==
[2025-05-27] VITALS (26 sets, daily range): BP systolic 79–117; BP diastolic 46–89; BMI 26.7
[2025-05-27] MEDS: TYLENOL/FEVERALL 650 MG RECTAL (04:54)
--- NOTE | 2025-05-27 04:58 | ED.GENMED ---
History of Present Illness
<Kathleen Pang PA-C - Last Filed: 05/27/25 07:21>
General
Chief Complaint: Change in Mental Status
Source: patient
Exam Limitations: none
Time Seen by Provider: 05/27/25 04:51
Nursing documentation reviewed up to this point in time: agreed with
History of Present Illness
History of Present Illness:
80-year-old male with a past medical history of prostate cancer, hypertension, stroke with mild residual right-sided weakness presents ER today with concerns of altered mental status. reports that he was well-appearing last night and appeared
more tired than usual and then he woke up in the middle of the night with a gurgling sensation and she saw him vomit once. He knew where he was at the time and was fully oriented. Patient's called the ambulance. She notes that he was hot to
the touch. Patient himself is able to tell me where he is and that he is in the hospital. He does not recall what happened this morning. He denies chest pain, abdominal pain, flank pain, back pain, burning with urination. His reports that
he is prone to UTIs. He denies any chest pain or shortness of breath. He denies any coughing.
Past History
<Kathleen Pang PA-C - Last Filed: 05/27/25 07:21>
Past History
ED Past Medical History: Cancer (Prostate cancer), CVA, HTN and Other (Post radiation urethral stricture short-term memory loss)
ED Past Surgical History: Urological
Social History
Tobacco: Non-smoker
Alcohol: None
Personal:
Living: with family
Employment: Retired
Family History
Family History: Other (Noncontributory)
Review of Systems
<Kathleen Pang PA-C - Last Filed: 05/27/25 07:21>
Review of Systems
All Other Systems: ROS reviewed and negative except as documented in HPI and ROS
Phy Exam
<Kathleen Pang PA-C - Last Filed: 05/27/25 07:21>
Physical Exam
Physical Exam:
General: Patient appears lethargic but answers my questions and follows commands
Skin: Warm and dry, no rashes or lesions
Head: Normocephalic, atraumatic
Eyes: Sclera non-icteric. EOMs intact.
Cardiac: Regular rate and rhythm, no murmurs
Peripheral Vascular: No lower extremity swelling or edema
Pulm: Normal respiratory effort, no wheezes, rales, rhonchi
Abdomen: No abdominal tenderness to palpation, no palpable abdominal mass
Neuro: CN II-XII intact, no focal neurologic deficits.
Psychiatric: Appropriate mood and affect.
Sepsis
<NIRALI Barrera Last Filed: 05/27/25 07:21>
Sepsis Screening
Sepsis Assessment: Sepsis
Sepsis Screen
Sepsis Screen: Sepsis
Date: 05/27/25
Time: 07:13
Course
<Kathleen Pang PA-C - [place] Filed: 05/27/25 07:21>
Orders/Labs/Results
Orders:
Orders
05/27/25 04:43
Electrocardiogram (*1) Urgent
Reason for Study: Other
Other Reason for Exam: Possible Sepsis
05/27/25 04:[address] [CT Head W/o Iv Contrast] Urgent
Comment:
Reason For Exam: change in mentation
EKG- Treatment ONCE
05/27/25 04:50
Acetaminophen [Tylenol/Feverall] 650 mg .ROUTE .STK-MED ONE
05/27/25 04:53
Acetaminophen [Tylenol/Feverall] 650 mg RECTAL NOW STA
05/27/25 04:55
COVID-19 Antigen Urgent
Source: Nasal Swab
Complete Blood Count/With Diff Urgent
Comprehensive Metabolic Panel Urgent
Lactic Acid Q4H
Comment: ON ICE, CANCEL 2ND ORDER IF FIRST LACTIC ACID LEVEL <2
Prothrombin Time Urgent
Urinalysis Reflex To Culture Urgent
Date Specimen was Collected: 05/27/25
Time Specimen was Collected: 04:53
Urine Microscopic Reflex Cult Urgent
Blood Culture Q20M
TOYA Source: Blood/Venous
Specimen Description:
Comment: Urgent from separate sites. If patient screens positive for possible sepsis
Blood Culture Q20M
TOYA Source: Blood/Venous
Specimen Description:
Comment: Urgent from separate sites. If patient screens positive for possible sepsis
Influenza A+B Rapid Molecular Urgent
TOYA Source: Nasal Swab
Specimen Description:
Urine Culture Urgent
TOYA Source: U
Specimen Description:
Date Specimen was Collected: 05/27/25
Time Specimen was Collected: 04:53
05/27/25 05:12
0.9% Sodium Chloride 1000 ml [Nss] 2,500 ml IV NOW STA
CR Chest - 2 Views Urgent
Comment:
Reason For Exam: fever, cough
05/27/25 05:15
CT Abd/pelvis W Iv Cont Urgent
Comment:
Reason For Exam: sepsis, vomiting
05/27/25 07:03
CefTRIAXone [Rocephin] 2,000 mg IV NOW STA
Abnormal Lab Results
05/27/25
04:55
RBC 2.59 L 10^6/uL
(4.70-6.10)
Hgb 8.7 L g/dL
(13.0-18.0)
Hct 25.7 L %
(39.0-52.0)
MCV 99.2 H fL
(80.0-94.0)
MCH 33.6 H pg
(27.0-31.0)
RDW 15.6 H %
(11.5-14.5)
Absolute Lymphs (auto) 1.0 L 10^3/uL
(1.2-3.4)
Neutrophils % 75.4 H %
(42.2-75.2)
Lymphocytes % 19.2 L %
(20.5-51.1)
BUN 25 H mg/dl
(9-20)
Glucose 138 H mg/dl
(70-99)
Ur Occult Blood Reflex 4+ A
(Negative)
Leukocyte Esterase Rfl 3+ A
(Negative)
Urine WBC (Reflex) >100 A /HPF
(0-5)
Urine Bacteria (Reflex) Few A
(Negative)
Urine Albumin (Reflex) 3+ A
(Neg - Trace)
05/27/25 04:55
05/27/25 04:55
Vital Signs
Initial and Last Documented VS:
Initial Vital Signs
Temp Pulse Resp BP Pulse Ox
102.5 F H 102 24 117/68 96
05/27/25 04:41 05/27/25 04:41 05/27/25 04:41 05/27/25 04:41 05/27/25 04:41
Last Documented Vital Signs
Temp Pulse Resp BP Pulse Ox
98.9 F 78 24 89/65 96
05/27/25 06:41 05/27/25 07:00 05/27/25 04:41 05/27/25 07:00 05/27/25 07:00
Pagelt;Richard Willett, - Last Filed: 05/27/25 06:45>
Orders/Labs/Results
Orders:
Orders
05/27/25 04:43
Electrocardiogram (*1) Urgent
Reason for Study: Other
Other Reason for Exam: Possible Sepsis
05/27/25 04:[address] [CT Head W/o Iv Contrast] Urgent
Comment:
Reason For Exam: change in mentation
EKG- Treatment ONCE
05/27/25 04:50
Acetaminophen [Tylenol/Feverall] 650 mg .ROUTE .STK-MED ONE
05/27/25 04:53
Acetaminophen [Tylenol/Feverall] 650 mg RECTAL NOW STA
05/27/25 04:55
COVID-19 Antigen Urgent
Source: Nasal Swab
Complete Blood Count/With Diff Urgent
Comprehensive Metabolic Panel Urgent
Lactic Acid Q4H
Comment: ON ICE, CANCEL 2ND ORDER IF FIRST LACTIC ACID LEVEL <2
Prothrombin Time Urgent
Urinalysis Reflex To Culture Urgent
Date Specimen was Collected: 05/27/25
Time Specimen was Collected: 04:53
Urine Microscopic Reflex Cult Urgent
Blood Culture Q20M
TOYA Source: Blood/Venous
Specimen Description:
Comment: Urgent from separate sites. If patient screens positive for possible sepsis
Blood Culture Q20M
TOYA Source: Blood/Venous
Specimen Description:
Comment: Urgent from separate sites. If patient screens positive for possible sepsis
Influenza A+B Rapid Molecular Urgent
TOYA Source: Nasal Swab
Specimen Description:
Urine Culture Urgent
TOYA Source: U
Specimen Description:
Date Specimen was Collected: 05/27/25
Time Specimen was Collected: 04:53
05/27/25 05:12
0.9% Sodium Chloride 1000 ml [Nss] 2,500 ml IV NOW STA
CR Chest - 2 Views Urgent
Comment:
Reason For Exam: fever, cough
05/27/25 05:15
CT Abd/pelvis W Iv Cont Urgent
Comment:
Reason For Exam: sepsis, vomiting
05/27/25 07:03
CefTRIAXone [Rocephin] 2,000 mg IV NOW STA
Abnormal Lab Results
05/27/25
04:55
RBC 2.59 L 10^6/uL
(4.70-6.10)
Hgb 8.7 L g/dL
(13.0-18.0)
Hct 25.7 L %
(39.0-52.0)
MCV 99.2 H fL
(80.0-94.0)
MCH 33.6 H pg
(27.0-31.0)
RDW 15.6 H %
(11.5-14.5)
Absolute Lymphs (auto) 1.0 L 10^3/uL
(1.2-3.4)
Neutrophils % 75.4 H %
(42.2-75.2)
Lymphocytes % 19.2 L %
(20.5-51.1)
BUN 25 H mg/dl
(9-20)
Glucose 138 H mg/dl
(70-99)
Ur Occult Blood Reflex 4+ A
(Negative)
Leukocyte Esterase Rfl 3+ A
(Negative)
Urine WBC (Reflex) >100 A /HPF
(0-5)
Urine Bacteria (Reflex) Few A
(Negative)
Urine Albumin (Reflex) 3+ A
(Neg - Trace)
05/27/25 04:55
05/27/25 04:55
Vital Signs
Initial and Last Documented VS:
Initial Vital Signs
Temp Pulse Resp BP Pulse Ox
102.5 F H 102 24 117/68 96
05/27/25 04:41 05/27/25 04:41 05/27/25 04:41 05/27/25 04:41 05/27/25 04:41
Last Documented Vital Signs
Temp Pulse Resp BP Pulse Ox
98.9 F 78 24 89/65 96
05/27/25 06:41 05/27/25 07:00 05/27/25 04:41 05/27/25 07:00 05/27/25 07:00
<Kathleen Pang PA-C - Last Filed: 05/27/25 07:21>
MDM/Problems Addressed
Differential Diagnosis Includes:
Differentials diverticulitis urinary tract infection, gastroenteritis, viral syndrome, pneumonia, encephalitis, etc.
MDM/Problems Addressed:
80-year-old male past medical history of prostate cancer, hypertension, hyperlipidemia, presents to the ER today with concerns of a fever and changes in his mental status. Upon arrival, he was mildly hypotensive. He was febrile rectally to 103.
He was started sepsis fluid dosing 30 mL/kg. Straight cath urinalysis obtained. Blood work obtained. Blood cultures obtained. Considering unclear source of infection at this time, will send for chest x-ray as well as CT of the abdomen pelvis.
Patient is in no pain at this time.
Labs reviewed, no leukocytosis noted. Lactic acid normal. Urinalysis concerning for infection. Anemia, mildly worsened from baseline. Viral testing negative. CT scan shows acute ascending left urinary tract infection with acute left
pyelonephritis acute cystitis. There is also noted to be extensive multifocal blastic osseous metastasis disease. ED attending aware of case. Will start Rocephin. Patient referred to hospitalist.
Chronic conditions affecting care:
prostate cancer
<NIRALI Barrera Last Filed: 05/27/25 07:21>
*Pulse Oximetry
SaO2: 90
Oxygen Mode of Delivery: Room air
Patient hypoxic: no
*Critical Care Note
Total Time (30-74mins, 75-104mins- exclusive of procedures): Not Applicable
Data Reviewed
Review of Other/Old Records Reveals: Records (Reviewed discharge summary from 03/22/2024 patient seen for dizziness was thought to have occipital headache findings on MRI)
Source: patient and records
<NIRALI Barrera Last Filed: 05/27/25 07:21>
Patient Management
Escalation/DeEscalation of care consider admission/obs:
admission indicated
ED Attending Note
<Kathleen Pang PA-C - Last Filed: 05/27/25 07:21>
-
Portions of this chart may have been created with voice recognition software.� Occasional wrong word or��sound alike� substitutions may have occurred due to the inherent limitations of voice recognition software.
<Richard Willett DO - Last Filed: 05/27/25 06:45>
ED Attending Note
Patient seen and examined by attending physician: Yes
I performed the substantive portion of visit, reviewed & personally made and approve the management plan that is documented in note by myself or MACK.: Yes
ED Attending Note:
I evaluated patient at bedside. He is febrile but white count normal. Temperature broke after rectal Tylenol urinalysis shows signs of UTI. I reviewed records grew [facility] in the past. I personally viewed CT imaging as well
Discharge Plan
Departure
Patient Disposition: Admit
Date of Disposition: 05/27/25
Time of Disposition: 07:03
Admit to: Med/Surg
Presentation/result/management discussed w/ accepting MD/DO: Hospitalist
Patient with high blood pressure during this ER visit?: Yes
Condition: Fair
Discharge Problem:
Acute pyelonephritis
Prescriptions:
No Action
docusate sodium [Colace] 100 mg Capsule
200 mg PO DAILY
ascorbic acid (vitamin C) [Vitamin C] 500 mg Tablet
500 mg PO DAILY
cholecalciferol (vitamin D3) [Vitamin D3] 25 mcg (1,000 unit) Tablet
25 mcg PO DAILY
[facility] 750 mg-100 mg- 1.65 mg-108 mg Tablet
1 tab PO DAILY
Nubeqa 300 mg Tablet
600 mg PO BID
donepezil 5 mg Tablet
5 mg PO DAILY
potassium chloride [Klor-Con] 20 mEq packet
20 meq PO BID
prednisone 2.5 mg Tablet
2.5 mg PO DAILY
atorvastatin 40 mg Tablet
40 mg PO QPM 30 Days Qty: 30 0RF
aspirin 81 mg Tablet,Chewable
81 mg PO DAILY 30 Days Qty: 30 0RF
cefdinir 300 mg capsule
300 mg PO BID 7 Days Qty: 14 0RF
spironolactone 25 mg Tablet
25 mg PO DAILY Qty: 30 1RF
Referrals:
Dany Fitzgerald DO [Family Provider, Family Practice]
Interventions
Interventions:
*Risk Screen - Suicide Last Done: 05/27/25 04:41
*General Assessment Last Done: 05/27/25 04:41
*Neglect/Abuse Screening Last Done: 05/27/25 04:41
*ED COVID-19 Vaccine History Last Done: 05/27/25 04:41
*ED Influenza Vaccine History Last Done: 05/27/25 04:41
[facility] Fall Risk Assessment Tool Last Done: 05/27/25 04:41
ED- Neurological Assessment Last Done: 05/27/25 04:41
ED Swallowing Screen Last Done: 05/27/25 04:41
Discharge Date and Time
Print Language: TAJIK
[2025-05-27 05:06] LABS: Hematocrit 25.7 % (39.0-52.0); Hemoglobin 8.7 g/dL (13.0-18.0); Mean Corp Hgb Conc. 33.9 g/dL (33.0-37.0); Mean Corpuscular Volume 99.2 fL (80.0-94.0); Nucleated Red Blood Cells % 0 % (-); Platelet Count 168 10^3/uL (130-400); Red Cell Dist. Width 15.6 % (11.5-14.5)
[2025-05-27 05:09] LABS: Urine Character Cloudy (Clear)
[2025-05-27 05:16] LABS: INR 1.04; PT 13.7 Sec (11.4-14.6)
[2025-05-27] MEDS: NSS 2500 ML IV (05:22)
[2025-05-27 05:24] LABS: ALT (SGPT) 20 U/L (0-50); AST (SGOT) 27 U/L (17-59); Albumin 4.2 g/dl (3.5-5.0); Alkaline Phosphatase 75 U/L (38-126); Blood Urea Nitrogen 25 mg/dl (9-20); Calcium 9.0 mg/dl (8.4-10.2); Carbon Dioxide 22 mmol/L (22-30); Chloride 105 mmol/L (98-107); Estimated Creatinine Clearance 63 ml/min; Glucose 138 mg/dl (70-99); Potassium 3.8 mmol/L (3.5-5.1); Sodium 136 mmol/L (135-145); Total Protein 7.1 g/dl (6.3-8.2); eGFR > 60.00
[2025-05-27 05:25] LABS: COVID-19 Antigen Negative (Negative)
[2025-05-27 06:29] LABS: Urine Red Blood Cell 0-2 /HPF (0-2)
[2025-05-27 06:30] LABS: Urine White Cell >100 /HPF (0-5)
[2025-05-27] MEDS: ROCEPHIN 2000 MG IV (07:40)
[2025-05-27] MEDS: NSS 500 IV (07:42)
--- NOTE | 2025-05-27 08:08 | HPS.HSE ---
Family Physician
-
Family Physician: Dany Fitzgerald
Chief Complaint
-
change in mental status
History of Present Illness
80 y/o male with altered mental status. reported that patient woke up at the middle of the night and vomited some mucous. He also felt warm to touch. He has a urethral dilator which use it periodically . She thinks he used it tuesday night
Medical History
Past Medical History
Past Medical History: Reports Other
Additional Past Medical History:
Cognitive impairment, CVA, hypertension, history of prostate cancer, hyperlipidemia
Past Surgical History: Reports Other
Additional Past Surgical History:
Left wrist surgery, prostatectomy, cystoscopy with dilatation, meatoplasty
Social History
Tobacco: Non-smoker
Personal:
Living: With Family
Family History
Family History: Not pertinent
Allergies / Home Medications
Allergies reflects when Allergies were last updated in [facility].
Home Medications with original date entered in [facility]
Allergy/Medication List:
Allergies
Allergy/AdvReac Type Severity Reaction Status Date / Time
Horse/Equine Containing Allergy Anaphylaxis Verified 05/27/25 04:40
Products - horse
serum
Tetanus Vaccines and Toxoid Allergy Anaphylaxis Verified 05/27/25 04:40
(Tetanus)
Home Medications
docusate sodium 100 mg capsule (Colace) 200 mg PO DAILY Gastrointestinal issue 09/05/22
ascorbic acid (vitamin C) 500 mg tablet (Vitamin C) 500 mg PO DAILY Supplement 08/03/23
cholecalciferol (vitamin D3) 25 mcg (1,000 unit) tablet (Vitamin D3) 25 mcg PO DAILY Supplement 08/03/23
glucosam 750 mg-chondroi 100 mg-hyalur 1.65 mg-CF borate 108 mg tablet ([facility] [employer] [facility]) 1 tab PO DAILY Supplement 08/03/23
darolutamide 300 mg tablet (Nubeqa) 300 mg PO DAILY Prostate Cancer 03/20/24
donepezil 5 mg tablet 5 mg PO DAILY Neurological Condition 03/20/24
potassium chloride 20 mEq oral packet (Klor-Con) 20 meq PO BID Electrolyte Repletion 03/20/24
prednisone 2.5 mg tablet 2.5 mg PO DAILY Anti-Inflammatory 03/20/24
atorvastatin 40 mg tablet 40 mg PO QPM High cholesterol 30 days #30 tabs 03/22/24
spironolactone 25 mg tablet 25 mg PO DAILY Blood pressure #30 tabs 03/22/24
Review of Systems
-
Unable to obtain full review of systems at this time due to: Dementia
Physical Exam
Vital Signs
Vital Signs
Temp Pulse Resp BP Pulse Ox
98.4 F 94 20 84/63 98
05/27/25 07:40 05/27/25 07:40 05/27/25 07:40 05/27/25 07:40 05/27/25 07:49
Physical Exam
General: No Apparent Distress and Conversant
Respiratory: Clear
Cardiac: S1/S2
GI: Soft, Non Tender and Normal Bowel Sounds
Skin: Warm
Neuro: Awake, Alert, Oriented (X 2), Cranial Nerves Intact and Other (Good strength bilateral upper extremities and lower extremities, minimal right-sided weakness)
Psych: Apparent Dementia
Laboratory Results
-
05/27/25 04:55
05/27/25 04:55
Laboratory Results
PT 13.7 Sec (11.4-14.6) 05/27/25 04:55
INR 1.04 05/27/25 04:55
Lactic Acid Cancelled 05/27/25 08:45
Total Bilirubin 0.5 mg/dl (0.2-1.3) 05/27/25 04:55
AST 27 U/L (17-59) 05/27/25 04:55
ALT 20 U/L (0-50) 05/27/25 04:55
Alkaline Phosphatase 75 U/L (38-126) 05/27/25 04:55
Impression/Plan
-
CT abdomen and pelvis-acute ascending left urinary tract infection and acute left pyelonephritis. Acute cystitis. Previous total prostatectomy. Extensive multifocal blastic osseous metastatic disease. Severe pathologic fracture of the L2 treated
with vertebroplasty. Previous bilateral orchiectomy. Bilateral adrenal adenomas. Moderate amount of fecal material throughout the colon. Small subpleural left lower lobe airspace consolidation, possibly mild pneumonia.
Head CT-no acute intracranial hemorrhage or transcortical infarct. Moderate-sized band of encephalomalacia in the right frontal lobe at the site of remote ventriculostomy catheter. Mild encephalomalacia in the inferomedial aspect of the left BG
and inferior to the frontal horn of the left lateral ventricle at the site of a chronic resolved intraparenchymal hemorrhage. Moderate bilateral temporal lobe volume loss. Low-lying cerebellar tonsils-unchanged
EKG-sinus rhythm with sinus arrhythmia.
IMPRESSION/PLAN:
# Pyelonephritis/acute cystitis
Possibly related to recent use of urethral dilator Tuesday.
Lactic acid normal
Urine cultures and blood culture sent
Antibiotic started-continue Ceftriaxone
Continue IV fluids
One dose of stress dose steroids now. Add more if BP does not improve.
Follow cultures
# Small subpleural left lower lobe atelectasis
# Constipation-bowel regimen ordered
# Anemia- Check iron studies
# Valvular heart disease-mild mitral regurgitation, mild aortic stenosis, mild to moderate AI, mild TR
# History of CVA/history of IC hemorrhage in September 2022
# Urethral stricture with dilatation metroplasty in the past
# History of prostate cancer with metastasis-History of prostatectomy and radiation on Pluvicto and Nubeqa now. Also on prednisone. Treated at [facility]. says PSA dropped significantly. He just had 4/6 planned Rx.
# Hyperlipidemia-continue statin
# Hypertension-Hold Aldactone
# Dementia-continue Aricept
# DVT prophylaxis-Lovenox
# Full code
Discussed with at bedside in detail. Updated patient's condition
Time spent more than 25 minutes
[2025-05-27] MEDS: SOLU-CORTEF 100 MG IV (09:25)
[2025-05-27] MEDS: NSS 1000 IV ×2 (11:12→16:24)
[2025-05-27] MEDS: MIRALAX PO (11:16)
[2025-05-27 11:57] LABS: Iron 45 ug/dl (49-181)
[2025-05-27 12:06] LABS: Total Iron Binding Capacity 288 ug/dl (261-462)
--- NOTE | 2025-05-27 12:14 | CM ---
Chart reviewed Spoke with patient and his Keli at ED bedside
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
Lives in 2 [address] with 2 URI[place]
Has an elevator inside of the house
Independent with ADLs and ambulates with cane
DME cane
PCP Dany Fitzgerald
[facility] in [place]
no hx VN
[facility]
DCP is to go home per
used [facility] after his DC from SNF
CM will continue to follow up for dcp needs
[2025-05-27 12:34] LABS: Ferritin 91.1 ng/ml (17.9-464.0)
[2025-05-27 12:48] LABS: Vitamin B12 706 pg/ml (239-931)
--- NOTE | 2025-05-27 13:53 | PTCARENOTE ---
BP 86/46. patient is drowsy. IVF ongoing @100 ml/hr. MD notified. 250ml bolus ordered. IMU transfer orders placed and noted.
[2025-05-27] MEDS: NSS 250 IV (14:36)
[2025-05-27] MEDS: SOLU-CORTEF 50 MG IV (15:02)
--- NOTE | 2025-05-27 16:41 | PTCARENOTE ---
Addendum entered by Erica Garcia RN 05/27/25 17:25:
Blood pressure noted to be 80/55 with MAP of 66 on right arm and 104/66 with MAP of 78 in left arm. Patient denies discomfort. Dr. Rdz made aware.
Original Note:
Patient arrived to unit via stretcher around 15:30 from Acute 1 with dx of Pyelonephritis. Patient transferred to IMU due to hypotension. Patient AAOX 2-3, with some disorientation to time. Patient denies pain and wake and able to answer questions
along with at bedside. Upon arrival to unit, Patient BP 86/54 with MAP of 65, otherwise vitals stable. Dr. Brown notified and PRN order for levophed ordered for MAP above 65. BP reassessed at 85/66 with MAP of 69 at current time. IVF
infusing. Patient states he is comfortable. Call lyman within reach.
[2025-05-27] MEDS: LOVENOX 40 MG SC (18:19)
[2025-05-27] MEDS: LIPITOR 40 MG PO (18:19)
[2025-05-27] MEDS: KLOR-CON 20 MEQ PO (21:31)
[2025-05-27] MEDS: SENOKOT 8.6 MG PO (21:31)
[2025-05-28] VITALS (17 sets, daily range): BP systolic 92–125; BP diastolic 50–85; PULSE 72; O2SAT 96; BMI 27.2
[2025-05-28] MEDS: SOLU-CORTEF 50 MG IV ×2 (00:16→08:30)
[2025-05-28] MEDS: NSS 1000 IV ×2 (00:20→11:05)
[2025-05-28 06:04] LABS: Blood Urea Nitrogen 19 mg/dl (9-20); Calcium 8.1 mg/dl (8.4-10.2); Carbon Dioxide 22 mmol/L (22-30); Chloride 116 mmol/L (98-107); Estimated Creatinine Clearance 90 ml/min; Glucose 114 mg/dl (70-99); Magnesium 2.0 mg/dl (1.6-2.3); Potassium 4.0 mmol/L (3.5-5.1); Sodium 140 mmol/L (135-145); eGFR > 60.00
[2025-05-28 06:08] LABS: Hematocrit 18.7 % (39.0-52.0); Hemoglobin 6.5 g/dL (13.0-18.0); Mean Corp Hgb Conc. 34.8 g/dL (33.0-37.0); Mean Corpuscular Volume 100.0 fL (80.0-94.0); Platelet Count 188 10^3/uL (130-400); Red Cell Dist. Width 16.1 % (11.5-14.5)
[2025-05-28 06:37] LABS: Hematocrit 21.2 % (39.0-52.0); Hemoglobin 7.2 g/dL (13.0-18.0)
[2025-05-28 06:53] LABS: Vitamin B12 624 pg/ml (239-931)
[2025-05-28] MEDS: VITAMIN D3 (cholecalciferol) 25 MCG PO (08:30)
[2025-05-28] MEDS: COLACE 200 MG PO (08:30)
[2025-05-28] MEDS: SENOKOT 8.6 MG PO ×2 (08:30→20:13)
[2025-05-28] MEDS: DELTASONE 2.5 MG PO (08:30)
[2025-05-28] MEDS: KLOR-CON 20 MEQ PO ×2 (08:30→20:13)
[2025-05-28] MEDS: ARICEPT 5 MG PO (08:30)
[2025-05-28] MEDS: MIRALAX 17 GRAMS PO (08:30)
[2025-05-28] MEDS: ROCEPHIN 2000 MG IV (08:31)
[2025-05-28] MEDS: STERILE WATER FOR INJECTION 20 ML IV (08:31)
--- NOTE | 2025-05-28 09:43 | PTCARENOTE ---
Assumed care of pt from night RN. AAOx3, but forgetful. Bed alarm on. NSR on tele, HRs 80s. SpO2 95% on room air. VSS. Male purewick in place. IVF infusing per order. Assessment documented. Pt resting in bed, call lyman in reach.
--- NOTE | 2025-05-28 12:01 | W.PN.HOSP.TC ---
Today's Communication/Plan
-
OK for tele
PT eval
Assessment / Plan
Assessment / Plan
CT abdomen and pelvis-acute ascending left urinary tract infection and acute left pyelonephritis. Acute cystitis. Previous total prostatectomy. Extensive multifocal blastic osseous metastatic disease. Severe pathologic fracture of the L2 treated
with vertebroplasty. Previous bilateral orchiectomy. Bilateral adrenal adenomas. Moderate amount of fecal material throughout the colon. Small subpleural left lower lobe airspace consolidation, possibly mild pneumonia.
Head CT-no acute intracranial hemorrhage or transcortical infarct. Moderate-sized band of encephalomalacia in the right frontal lobe at the site of remote ventriculostomy catheter. Mild encephalomalacia in the inferomedial aspect of the left BG
and inferior to the frontal horn of the left lateral ventricle at the site of a chronic resolved intraparenchymal hemorrhage. Moderate bilateral temporal lobe volume loss. Low-lying cerebellar tonsils-unchanged
EKG-sinus rhythm with sinus arrhythmia.
On examination awake alert confused
Cardiovascular system S1-S2 appreciated
Chest clear to auscultation next abdomen soft and nontender
# Pyelonephritis/acute cystitis
Sepsis with E Coli Bacteremia, present on admission
Possibly related to recent use of urethral dilator Tuesday.
Lactic acid normal
Urine cultures and blood culture sent-E. coli
Antibiotic started-continue Ceftriaxone
Continue IV fluids-decrease the rate
Status post stress dose steroids
Follow cultures
Never needed to be started on pressors
# Small subpleural left lower lobe atelectasis
# Constipation-resolved. Patient had bowel movements
# Anemia-iron deficiency anemia. Discussed with regarding need for endoscopy and colonoscopy as outpatient. Add PPI as patient is on Aricept and prednisone which can cause gastritis/ulcers. Heme test negative
also stated that he has been anemic as outpatient because of the malignancy
# Valvular heart disease-mild mitral regurgitation, mild aortic stenosis, mild to moderate AI, mild TR
# History of CVA/history of IC hemorrhage in September 2022
# Urethral stricture with dilatation metroplasty in the past
# History of prostate cancer with metastasis-History of prostatectomy and radiation on Pluvicto and Nubeqa now. Also on prednisone. Treated at [facility]. says PSA dropped significantly. He just had 4/6 planned Rx.
# Hyperlipidemia-continue statin
# Hypertension-Hold Aldactone
# Dementia-continue Aricept
# DVT prophylaxis-Lovenox
# Full code
Discussed with nursing at bedside
Discussed with patient's on the phone and updated
OK for tele
Anticipated Discharge: 24 - 48 hours
Subjective/Interval History
-
Date of Service: May 28, 2025
Objective Data
-
Labs:
Laboratory Results
05/28/25 05/28/25
05:26 06:29
WBC 12.1 H
Hgb 6.5 L* D 7.2 L
Hct 18.7 L* 21.2 L
Plt Count 188
Sodium 140
Potassium 4.0
Chloride 116 H
Carbon Dioxide 22
BUN 19
Creatinine 0.7
Glucose 114 H
Calcium 8.1 L
Vital Signs:
Vital Signs
Temp Pulse Resp BP Pulse Ox
98.2 F 66 13 92/54 97
05/28/25 08:29 05/28/25 11:30 05/28/25 11:30 05/28/25 11:00 05/28/25 11:30
I&O
05/27/25 05/28/25 05/29/25
06:59 06:59 06:59
Intake Total 3330 / 3330
Output Total 2150 / 215
Balance 1180 / 1180
[2025-05-28] MEDS: FEOSOL 325 MG PO ×2 (12:26→20:13)
[2025-05-28] MEDS: PROTONIX 40 MG PO (12:26)
[2025-05-28] MEDS: LR 1000 IV ×2 (12:27→21:40)
[2025-05-28] MEDS: LIPITOR 40 MG PO (17:26)
[2025-05-28] MEDS: LOVENOX 40 MG SC (17:26)
[2025-05-29 03:00] VITALS: BP 127/70
[2025-05-29] MEDS: TYLENOL 650 MG PO (05:39)
[2025-05-29 07:23] VITALS: BP 119/68
[2025-05-29] MEDS: LR 1000 IV (08:42)
[2025-05-29] MEDS: COLACE PO (08:43)
[2025-05-29] MEDS: VITAMIN D3 (cholecalciferol) 25 MCG PO (08:44)
[2025-05-29] MEDS: STERILE WATER FOR INJECTION 20 ML IV (08:44)
[2025-05-29] MEDS: DELTASONE 2.5 MG PO (08:44)
[2025-05-29] MEDS: ARICEPT 5 MG PO (08:44)
[2025-05-29] MEDS: ROCEPHIN 2000 MG IV (08:44)
[2025-05-29] MEDS: KLOR-CON 20 MEQ PO (08:44)
[2025-05-29] MEDS: PROTONIX 40 MG PO (08:44)
[2025-05-29] MEDS: FEOSOL 325 MG PO (08:44)
[2025-05-29] MEDS: MIRALAX PO (08:44)
[2025-05-29] MEDS: SENOKOT PO (08:44)
[2025-05-29] MEDS: FLUSH (NSS) 1 FLUSH IV ×2 (08:45)
[2025-05-29 09:07] LABS: Hematocrit 22.2 % (39.0-52.0); Hemoglobin 7.5 g/dL (13.0-18.0); Mean Corp Hgb Conc. 33.8 g/dL (33.0-37.0); Mean Corpuscular Volume 99.1 fL (80.0-94.0); Platelet Count 176 10^3/uL (130-400); Red Cell Dist. Width 16.1 % (11.5-14.5)
[2025-05-29 10:25] LABS: Blood Urea Nitrogen 17 mg/dl (9-20); Calcium 7.6 mg/dl (8.4-10.2); Carbon Dioxide 18 mmol/L (22-30); Chloride 114 mmol/L (98-107); Estimated Creatinine Clearance 93 ml/min; Glucose 133 mg/dl (70-99); Potassium 3.5 mmol/L (3.5-5.1); Sodium 136 mmol/L (135-145); eGFR > 60.00
[2025-05-29 11:17] VITALS: BP 121/72
--- NOTE | 2025-05-29 12:52 | PN.CDI ---
Addendum entered and electronically signed by Hina Rdz MD 05/29/25 13:50:
Documentation is complete at this time.
Original Note:
CDI
- -
CDI:
Physician Documentation Request
Admit Date: 05/27/25 09:28
Dear . ,
[facility] is using an adapted version of the 2016 Third International Consensus Definitions for Sepsis and Septic Shock (Sepsis-3) where sepsis is defined as life threatening organ dysfunction caused by a deregulated host response to infection.
Please reference the official [facility] Sepsis Recognition Tool for further information, which can be found on the Intranet under Infection Prevention.
Clinical Indicators:
Progress notes: (list potential organ dysfunction documentation)
Pt admitted for Pyelonephritis/acute cystitis Sepsis with E Coli Bacteremia
Temp: 102.5, 103.8
HR: 97- 108
BP: 79/60, 80/58, 89/53
WBC: 5.0, 12.1, 7.0
Treatment:
05/27 SBP 79-89, Pt received over 4 liters of IVF
IV Rocephin
Based on your medical judgment, can you please clarify whether or not the above organ dysfunction is related to or due to sepsis?
-- Sepsis due to Pyelonephritis/acute cystitis with organ dysfunction of Hypotension
-- Sepsis due to Pyelonephritis/acute cystitis with organ dysfunction of (specify)___
-- Other (please specify)
-- Clinically unable to determine��
Use of terms such as suspected, likely, concern for, or probable (associated with a specific diagnosis that is being evaluated, monitored, or treated as if it exists) are acceptable and can be coded in the inpatient setting when documented at the
time of discharge.
Please use your independent medical judgement in providing your response.
Thank you,
Gabby Will RN, BSN
CDI Specialist
[place] [facility]
[2025-05-29 15:00] VITALS: BP 140/80
--- NOTE | 2025-05-29 15:05 | W.PN.HOSP.TC ---
Today's Communication/Plan
-
Discharge
Assessment / Plan
Assessment / Plan
CT abdomen and pelvis-acute ascending left urinary tract infection and acute left pyelonephritis. Acute cystitis. Previous total prostatectomy. Extensive multifocal blastic osseous metastatic disease. Severe pathologic fracture of the L2 treated
with vertebroplasty. Previous bilateral orchiectomy. Bilateral adrenal adenomas. Moderate amount of fecal material throughout the colon. Small subpleural left lower lobe airspace consolidation, possibly mild pneumonia.
Head CT-no acute intracranial hemorrhage or transcortical infarct. Moderate-sized band of encephalomalacia in the right frontal lobe at the site of remote ventriculostomy catheter. Mild encephalomalacia in the inferomedial aspect of the left BG
and inferior to the frontal horn of the left lateral ventricle at the site of a chronic resolved intraparenchymal hemorrhage. Moderate bilateral temporal lobe volume loss. Low-lying cerebellar tonsils-unchanged
EKG-sinus rhythm with sinus arrhythmia.
On examination awake alert confused
Cardiovascular system S1-S2 appreciated
Chest clear to auscultation next abdomen soft and nontender
# Pyelonephritis/acute cystitis
Sepsis with E Coli Bacteremia, present on admission
Possibly related to recent use of urethral dilator Tuesday.
Lactic acid normal
Urine cultures and blood culture sent-E. coli
Antibiotic started-continue Ceftriaxone
stop IVF
Status post stress dose steroids
Never needed to be started on pressors
# Small subpleural left lower lobe atelectasis
# Constipation-resolved. Patient had bowel movements
# Anemia-iron deficiency anemia. Discussed with regarding need for endoscopy and colonoscopy as outpatient. Added PPI as patient is on Aricept and prednisone which can cause gastritis/ulcers. Heme test negative
also stated that he has been anemic as outpatient because of the malignancy and Pluvicta
Hb was 9.2 on 05/07/25
Script for rpt Hb given
# Valvular heart disease-mild mitral regurgitation, mild aortic stenosis, mild to moderate AI, mild TR
# History of CVA/history of IC hemorrhage in September 2022
# Urethral stricture with dilatation metroplasty in the past
# History of prostate cancer with metastasis-History of prostatectomy and radiation on Pluvicto and Nubeqa now. Also on prednisone. Treated at [facility]. says PSA dropped significantly now 1.7. He just had 4/6 planned Rx. And Pluvicto
# Hyperlipidemia-continue statin
# Hypertension-Hold Aldactone for another 2 days
# Dementia-continue Aricept
# DVT prophylaxis-Lovenox
# Full code
Discussed with nursing
Discussed with patient's
She wants to take him home as the patient has a regimen at home which he can follow and she thinks he will do better at home.
Patient is anxious and called my office to get him discharged.
Discussed with regarding anemia she said that patient has been anemic as outpatient also because of his malignancy.
Discussed about following sterile techniques for catheterization/dilatation of the urethra
stated that after Pluvicta his hemoglobin usually drops and usually comes back up. I will give a prescription for lab work with results to go to Dr. Fitzgerald who is patient's PCP.
is aware that this is important to follow-up.
Discussed with pharmacy
More than 30 minutes spent in discharge including
Final examination of the patient
Summarizing hospital stay
Instructions for continuing care to all relevant caregivers
Preparation of discharge records, prescriptions, and referral forms
Anticipated Discharge: Today
Subjective/Interval History
-
Date of Service: May 29, 2025
Objective Data
-
Labs:
Laboratory Results
05/29/25
08:46
WBC 7.0
Hgb 7.5 L
Hct 22.2 L
Plt Count 176
Sodium 136
Potassium 3.5
Chloride 114 H
Carbon Dioxide 18 L
BUN 17
Creatinine 0.7
Glucose 133 H
Calcium 7.6 L
Vital Signs:
Vital Signs
Temp Pulse Resp BP Pulse Ox
97.5 F 68 17 121/72 96
05/29/25 11:17 05/29/25 11:17 05/29/25 11:17 05/29/25 11:17 05/29/25 11:17
I&O
05/28/25 05/29/25 05/30/25
06:59 06:59 06:59
Intake Total 3330 / 3330 1959 / 1959
Output Total 2150 / 2150 1100 / 1100
Balance 1180 / 1180 860 / 860
[2025-05-29] MEDS: FERRLECIT 110 MG IV (15:27)
--- NOTE | 2025-05-29 15:33 | W.DS.TRANS ---
Addendum entered and electronically signed by Hina Rdz MD 05/30/25 15:15:
Dictation- [id number]
Original Note:
DC Summary - [facility]
-
Discharge Instructions:
Discharge Diagnosis/Procedures Pyelonephritis/cystitis
E. coli bacteremia
Constipation
Anemia
Valvular heart disease
History of stroke
Urethral stricture
Prostate cancer
High cholesterol
Hypertension
Dementia
Diet As tolerated
Activity As tolerated,With assistance
Driving Restrictions No driving
Blood Work CBC 4 to 5 days
Other Services VN
Instructions:
Stand-Alone Forms:
Changes to Home Medications: Yes
Discharge Medications:
DC Medications w/original date entered in [facility]
docusate sodium 100 mg capsule (Colace) 200 mg PO DAILY Gastrointestinal issue 09/05/22
ascorbic acid (vitamin C) 500 mg tablet (Vitamin C) 500 mg PO DAILY Supplement 08/03/23
cholecalciferol (vitamin D3) 25 mcg (1,000 unit) tablet (Vitamin D3) 25 mcg PO DAILY Supplement 08/03/23
glucosam 750 mg-chondroi 100 mg-hyalur 1.65 mg-CF borate 108 mg tablet (Move Free Xochitl (So-Shee) [place]) 1 tab PO DAILY Supplement 08/03/23
darolutamide 300 mg tablet (Nubeqa) 300 mg PO DAILY Prostate Cancer 03/20/24
donepezil 5 mg tablet 5 mg PO DAILY Neurological Condition 03/20/24
potassium chloride 20 mEq oral packet (Klor-Con) 20 meq PO BID Electrolyte Repletion 03/20/24
prednisone 2.5 mg tablet 2.5 mg PO DAILY Anti-Inflammatory 03/20/24
atorvastatin 40 mg tablet 40 mg PO QPM High cholesterol 30 days #30 tabs 03/22/24
spironolactone 25 mg tablet 25 mg PO DAILY Blood pressure #30 tabs 03/22/24
Held on 05/29/25. Instructions: Resume on 05/31/25.
cephalexin 500 mg capsule 500 mg PO Q6H Infection #48 caps 05/29/25
ferrous sulfate 325 mg (65 mg iron) tablet (FeroSul) 325 mg PO DAILY anemia #0 tabs 05/29/25
pantoprazole 40 mg tablet,delayed release (Protonix) 40 mg PO DAILY Gastrointestinal issue #30 tabs 05/29/25
polyethylene glycol 3350 17 gram oral powder packet 17 g PO DAILY Constipation #0 ea 05/29/25
Home Medication Changes
MiraLAX, Protonix, iron, Keflex are new
Pending Results: No
[2025-05-29 16:07] LABS: Vitamin D, 25-OH*** 28.4 ng/mL (30-80)
--- NOTE | 2025-05-29 16:40 | CM ---
Addendum entered by Azalea Ashby 05/29/25 16:41:
IMM given and placed on the chart
Original Note:
Met with pt and chairside. They are agreeable to VN for outpatient PT. Choices given, [facility], [facility] and [facility]. Pt chose [facility]
Pt is discharge to home with home health ([facility])
== END 2025-05-29 16:48 | disposition home health service (06) | DRG 698 ==
LOC: 3 WEST ACU 09:28
PROVIDERS: Physician Assistant; ADMITTING PHYSICIAN Hospitalist; EMERGENCY PHYSICIAN Emergency Medicine; FAMILY PHYSICIAN Family Medicine
DX: T83.598A Infection and inflammatory reaction due to other prosthetic device, implant and graft in urinary system, initial encounter (principal); A41.51 Sepsis due to Escherichia coli [E. coli]; R65.20 Severe sepsis without septic shock; N30.00 Acute cystitis without hematuria; N10 Acute pyelonephritis; J98.11 Atelectasis; Z11.52 Encounter for screening for COVID-19; K59.00 Constipation, unspecified; E78.5 Hyperlipidemia, unspecified; I10 Essential (primary) hypertension; F03.90 Unspecified dementia, unspecified severity, without behavioral disturbance, psychotic disturbance, mood disturbance, and anxiety; Y84.6 Urinary catheterization as the cause of abnormal reaction of the patient, or of later complication, without mention of misadventure at the time of the procedure
CPT/HCPCS: 70450; 71046; 74177; 80048; 80053; 81003; 81015; 82306; 82607; 82728; 83540; 83550; 83605; 83735; 85014; 85018; 85025; 85027; 85610; 86850; 86900; 86901; 87040; 87077; 87086; 87088; 87154; 87186; 87205; 87502; 87811; 93005; 96360; 96374; 97162; 99285; J2916; Q9967